=== PATIENT | female | born 1945 | race Asian ===

== ENCOUNTER 2023-10-17 07:49 | Outpatient (AMB) | payer OTHER, SELFPAY ==
--- NOTE | 2023-10-17 07:52 | A.OFFVIS_ITS ---
Intake Vital Signs 10/17/23 08:05 Height 5 ft Weight 133 lb 2 oz BMI 26.0 BP 118/64 Blood Pressure Location Rt brachial Position Sitting Respiration 16 Pulse 65 Pulse Source Pulse Oximeter Pulse Oximetry (%) 97 Oxygen Delivery Method Room Air Intake Visit Reasons: ENP-Memory/Dementia - Confirmed Intake Note: Pt presents for new pt evaluation for memory loss and dementia. Senior Project Accountant Required: Yes Senior Project Accountant Name: Bj Valadez Allergies No Known Allergies Allergy (Verified 10/17/23 07:59) Medication List - Last Reconciled 10/17/23 by Roselyn Christy MD allopurinol 100 mg PO DAILY aspirin 81 mg PO DAILY diclofenac sodium 1% 2 grams topical QID levothyroxine 50 mcg PO DAILY metformin 500 mg PO BID metoprolol succinate ER 50 mg PO BID nifedipine ER 30 mg PO DAILY simvastatin 20 mg PO DAILY zoledronic acid 4 mg IV Q4W HPI HPI Comments History of Present Illness Details 78y/o female comes for evaluation of cog nitive issues.she has been living with her daughter for 4 years a now and her daughter noticed that the patient was having frequent short term . It is mostly short term recall, she has trouble with names of friends.she does her own breakfast but no cooking Her daughter takes care of her meds. 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 she has some personality change s- gets irritable especially with her . In 2017 she was c/o headaches but has self resolved. No head injury. No anxiety or depression diagnosed. she has poor sleep hygiene - still in [facility] time. she snores and daytime fatigue. According to her daughter when she moved here in 2018 her HTN was poorly control led. The MRI form 2021 shows extensive white matter disease. [facility] Medical History (Updated 10/18/23 @ 12:50 by Roselyn Christy MD) Hypersomnia Snoring Depression Mixed dementia Gout Hyperlipidemia Multiple myeloma Diabetes Hypothyroidism HTN (hypertension) Arthritis of knee Osteoporosis Hypersomnia Snoring Vaginal prolapse Surgical History H/O thyroidectomy H/O total hysterectomy Family History Father No problems noted. Mother No problems noted. Brother Diabetes Sister HTN (hypertension) Social History Household Members: Family Alcohol intake: never Patient Tobacco Use Status: Never used Tobacco Physical Exam Vital Signs: Last Vital Signs Pulse 65 10/17/23 08:05 Resp 16 10/17/23 08:05 BP 118/64 10/17/23 08:05 Pulse Ox 97 10/17/23 08:05 Oxygen Delivery Method Room Air 10/17/23 08:05 BMI result Body Mass Index 26.0 Const General: cooperative, healthy appearing and comfortable Nutritional Appearance: average body habitus Orientation/consciousness: patient oriented x3 Eyes Pupils: Equal, round and reactive pupils present Neck Neck: Yes no meningeal signs Neuro Other: mallampatti grade 4 General: patient oriented x3, tone normal, moves all extremities, no meningeal signs and no focal motor deficits Cranial nerves: Yes Facial sensation intact/muscles of mastication intact, Yes Equal, round and reactive pupils present, Yes Bilaterally intact EOM present, Yes Nystagmus not present and Yes Normal facial strength present Gait exam (Neuro): Antalgic gait present Motor exam (neuro): 5/5 motor strength present throughout and Normal motor muscle tone present throughout Deep tendon reflexes (DTR's): Right triceps reflex intensity grade: 1+, Left triceps reflex intensity grade: 1+, Rt Biceps (C5, C6): 1+, Left biceps reflex intensity grade: 1+, Right brachioradialis reflex intensity grade: 1+, Left brachioradialis reflex intensity grade: 1+, Right patellar reflex intensity grade: 1+ and Left patellar reflex intensity grade: 1+ Coordination: [id number] test normal Psych Affect: Anxious affect present Orientation What is the (year) (season) (date) (day) (month)?: season and day Where are we (state) (county) (town or city) (hospital) (floor)?: state, hospital/clinic and floor Registration Name of 3 unrelated objects clearly and slowly, then ask patient to repeat all 3 of them. (1st repeat determines score. Make sure they can repeat all three): object 1, object 2 and object 3 Attention & Calculation (CHOOSE ONE) Spell WORLD backwards (DLROW): 5 letters Language Show patient a wristwatch & ask what it is. Repeat for pencil.: watch and pencil Ask the patient to 'take a piece of paper with their right hand' 'fold paper in half' 'place paper on floor': take paper in right hand, fold paper in half and place paper on floor Print the sentence 'CLOSE YOUR EYES' on a piece. If patient actually closes eyes then score.: followed written direction Give patient a blank piece of paper & ask to write a sentence. Score if it contains a noun & verb.: sentence contains subject and verb Ask patient to copy figure of intersecting pentagons exactly. Score if all 10 angles & 2 intersects are included.: all 10 angles present & 2 are intersected Score Score: 21 Assessment & Plan Assessment & Plan (1) Mixed dementia: Comment: predominantly vascular Code(s): G30.9 - Alzheimer's disease, unspecified; F01.50 - Vascular dementia, unspecified severity, without behavioral disturbance, psychotic disturbance, mood disturbance, and anxiety; F02.80 - Dementia in other diseases classified elsewhere, unspecified severity, without behavioral disturbance, psychotic disturbance, mood disturbance, and anxiety (2) Depression: Code(s): F32.A - Depression, unspecified (3) Snoring: Code(s): R06.83 - Snoring (4) Hypersomnia: Code(s): G47.10 - Hypersomnia, unspecified Plan Patient did not tolerate donepezil I will trial her on memantine XR 7 mg qd and titrate upto 28 mg qd Suggested cognitive therapy Home sleep test to r/o sleep apnea Citalopram 10mg qd for mood Increase cognitive and social activity Orders: Orders RT home sleep study 10/17/23 G47.10 - Hypersomnia, unspecified, R06.83 - Snoring Medications: New citalopram 10 mg PO DAILY 30 tabs 6RF memantine 7 mg PO DAILY 30 ea 0RF Coding Level of Care Code New Pt Level 4 (59830) Diagnoses Mixed dementia G30.9; F01.50; F02.80 Depression F32.A Snoring R06.83 Hypersomnia G47.10
[2023-10-17 08:05] VITALS: BP 118/64; PULSE 65; RESP 16; O2SAT 97; BMI 26.0
== END 2023-10-17 09:13 | disposition home or self-care (01) ==
PROVIDERS: PCP Internal Medicine; Visit Provider Psychiatry & Neurology Neurology
DX: G30.9 Alzheimer's disease, unspecified (principal); F01.50 Vascular dementia, unspecified severity, without behavioral disturbance, psychotic disturbance, mood disturbance, and anxiety; F02.80 Dementia in other diseases classified elsewhere, unspecified severity, without behavioral disturbance, psychotic disturbance, mood disturbance, and anxiety; F32.A Depression, unspecified; R06.83 Snoring; G47.10 Hypersomnia, unspecified
CPT/HCPCS: 99204

== ENCOUNTER → 2023-10-17 07:49 | Outpatient (BNVA) | payer OTHER, SELFPAY | PROVIDERS: PCP Internal Medicine; Visit Provider Psychiatry & Neurology Neurology ==

== ENCOUNTER → 2023-11-30 12:41 | Outpatient (REF) | payer MEDICAID, SELFPAY | LOC: HO.SL 12:41 | PROVIDERS: PCP Internal Medicine; Visit Provider Psychiatry & Neurology Neurology | DX: G47.33 Obstructive sleep apnea (adult) (pediatric) (principal); R06.83 Snoring; G47.10 Hypersomnia, unspecified | CPT/HCPCS: 95806 ==

== ENCOUNTER → 2023-11-30 13:01 | Outpatient (BNV) | payer MEDICAID, SELFPAY | PROVIDERS: PCP Internal Medicine; Visit Provider Psychiatry & Neurology Neurology | DX: G47.33 Obstructive sleep apnea (adult) (pediatric) (principal) | CPT/HCPCS: 95806 ==

== ENCOUNTER 2024-01-24 08:26 | Outpatient (AMB) | payer OTHER, SELFPAY ==
--- NOTE | 2024-01-24 08:29 | A.OFFVIS_ITS ---
Vital Signs 01/24/24 08:30 Height 5 ft Weight 133 lb BMI 26.0 BP 114/58 L Blood Pressure Location Lt brachial Position Sitting Respiration 16 Pulse 80 Pulse Source Pulse Oximeter Pulse Oximetry (%) 99 Oxygen Delivery Method Room Air Intake Visit Reasons: 3M follow up-CONF Intake Note: Pt presents to the office for 3 month follow up for Alzheimer's. Miller Supervisor Required: No Allergies No Known Allergies Allergy (Verified 01/24/24 08:30) Medication List - Last Reconciled 01/24/24 by Roselyn Christy MD allopurinol 100 mg PO DAILY aspirin 81 mg PO DAILY diclofenac sodium 1% 2 grams topical QID levothyroxine 50 mcg PO DAILY memantine 28 mg PO DAILY 90 days metformin 500 mg PO BID metoprolol succinate ER 50 mg PO BID nifedipine ER 30 mg PO DAILY simvastatin 20 mg PO DAILY zoledronic acid 4 mg IV Q4W HPI Comments Details: 78y/o female comes for follow up.of cognitive issues.she is on memantine XR 28 mg now an dis tolerating. she did not start citalopram Her daughter feels her affect has mildly imporved with memantine. Her HST was c/w mild sleep apnea. JACQUES was 14 and oxygen violetta was 78%. she has been living with her daughter for 4 years a now and her daughter noticed that the patient was having frequent short term . It is mostly short term recall, she has trouble with names of friends.she does her own breakfast but no cooking Her daughter takes care of her meds. 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 she has some personality change s- gets irritable especially with her . In 2017 she was c/o headaches but has self resolved. According to her daughter when she moved here in 2018 her HTN was poorly controlled. The MRI form 2021 shows extensive white matter disease. [facility] Medical History (Updated 01/24/24 @ 09:37 by Roselyn Christy MD) Obstructive sleep apnea Hypersomnia Snoring Depression Mixed dementia Gout Hyperlipidemia Multiple myeloma Diabetes Hypothyroidism HTN (hypertension) Arthritis of knee Osteoporosis Hypersomnia Snoring Vaginal prolapse Surgical History H/O thyroidectomy H/O total hysterectomy Family History Father No problems noted. Mother No problems noted. Brother Diabetes Sister HTN (hypertension) Social History Household Members: Family Alcohol intake: never Patient Tobacco Use Status: Never used Tobacco Physical Exam Vital Signs: Last Vital Signs Pulse 80 01/24/24 08:30 Resp 16 01/24/24 08:30 BP 114/58 L 01/24/24 08:30 Pulse Ox 99 01/24/24 08:30 Oxygen Delivery Method Room Air 01/24/24 08:30 BMI result Body Mass Index 26.0 Const General: cooperative, healthy appearing and comfortable Nutritional Appearance: average body habitus Orientation/consciousness: patient oriented x3 Eyes Pupils: Equal, round and reactive pupils present Neck Neck: Yes no meningeal signs Neuro Other: mallampatti grade 4 General: patient oriented x3, tone normal, moves all extremities, no meningeal signs and no focal motor deficits Cranial nerves: Yes Facial sensation intact/muscles of mastication intact, Yes Equal, round and reactive pupils present, Yes Bilaterally intact EOM present, Yes Nystagmus not present and Yes Normal facial strength present Gait exam (Neuro): Antalgic gait present Assessment & Plan Assessment & Plan (1) Mixed dementia: Comment: predominantly vascular Code(s): G30.9 - Alzheimer's disease, unspecified; F01.50 - Vascular dementia, unspecified severity, without behavioral disturbance, psychotic disturbance, mood disturbance, and anxiety; F02.80 - Dementia in other diseases classified elsewhere, unspecified severity, without behavioral disturbance, psychotic disturbance, mood disturbance, and anxiety Category: Medical (2) Depression: Code(s): F32.A - Depression, unspecified Category: Medical (3) Obstructive sleep apnea: Code(s): G47.33 - Obstructive sleep apnea (adult) (pediatric) Category: Medical Plan Patient did not tolerate donepezil Continue memantine XR 28 mg qd Suggested cognitive therapy Home sleep test results reviewed. will trial patient on AUtoPAP 5-20 cm of water PET -AMyloid for possibility of starting Leqembi . Increase cognitive and social activity Orders: Orders MR head/brain wo con Today F01.50 - Vascular dementia, unspecified severity, without behavioral disturbance, psychotic disturbance, mood disturbance, and anxiety, F02.80 - Dementia in other diseases classified elsewhere, unspecified severity, without behavioral disturbance, psychotic disturbance, mood disturbance, and anxiety, G30.9 - Alzheimer's disease, unspecified PET Brain beta amyloid Today F01.50 - Vascular dementia, unspecified severity, without behavioral disturbance, psychotic disturbance, mood disturbance, and anxiety, F02.80 - Dementia in other diseases classified elsewhere, unspecified severity, without behavioral disturbance, psychotic disturbance, mood disturbance, and anxiety, G30.9 - Alzheimer's disease, unspecified Medications: New [wheel chair] As directed 1 ea 0RF dementia
[2024-01-24 08:30] VITALS: BP 114/58; PULSE 80; RESP 16; O2SAT 99; BMI 26.0
== END 2024-01-24 09:05 | disposition home or self-care (01) ==
PROVIDERS: PCP Internal Medicine; Visit Provider Psychiatry & Neurology Neurology
DX: G30.9 Alzheimer's disease, unspecified (principal); F01.50 Vascular dementia, unspecified severity, without behavioral disturbance, psychotic disturbance, mood disturbance, and anxiety; F02.80 Dementia in other diseases classified elsewhere, unspecified severity, without behavioral disturbance, psychotic disturbance, mood disturbance, and anxiety; F32.A Depression, unspecified; G47.33 Obstructive sleep apnea (adult) (pediatric)
CPT/HCPCS: 99214

== ENCOUNTER → 2024-01-24 08:26 | Outpatient (BNVA) | payer OTHER, SELFPAY | PROVIDERS: PCP Internal Medicine; Visit Provider Psychiatry & Neurology Neurology ==

== ENCOUNTER 2024-02-13 07:19 | Outpatient (REF) | payer OTHER, SELFPAY ==
--- NOTE | ~2024-02-13 | MR_ITS ---
EXAMINATION: MR BRAIN WITHOUT CONTRAST CLINICAL INFORMATION: Alzheimer's disease COMPARISON: None available. TECHNIQUE: MRI of the brain was obtained using routine sequences without contrast. FINDINGS: No acute intracranial hemorrhage or infarct. Scattered and confluent periventricular and deep white matter T2/FLAIR hyperintensities, nonspecific however commonly seen with small vessel ischemic disease. Diffuse widening of the sulci with associated ex vacuo dilation of the ventricles compatible with global cerebral atrophy. No midline shift or hydrocephalus. No acute extra-axial fluid collections. The osseous structures are unremarkable. The pituitary gland, pineal gland and remaining midline structures are unremarkable. Sequela bilateral lens replacement. Otherwise, no orbital pathology. Mild mucosal thickening of the paranasal sinuses. The mastoid air cells are clear. MR/MR head/brain wo con IMPRESSION: -No acute intracranial abnormalities. -Global cerebral atrophy and chronic microangiopathy.
== END 2024-02-13 07:20 | disposition home or self-care (01) ==
LOC: HO.MRI 07:19
PROVIDERS: PCP Internal Medicine; Visit Provider Psychiatry & Neurology Neurology
DX: G30.9 Alzheimer's disease, unspecified (principal); F01.50 Vascular dementia, unspecified severity, without behavioral disturbance, psychotic disturbance, mood disturbance, and anxiety; F02.80 Dementia in other diseases classified elsewhere, unspecified severity, without behavioral disturbance, psychotic disturbance, mood disturbance, and anxiety
CPT/HCPCS: 70551

== ENCOUNTER 2024-02-21 12:10 | Outpatient (REF) | payer OTHER, SELFPAY ==
[2024-02-21 18:54] LABS: MANUAL DIFF FLAG NO
[2024-02-21 19:07] LABS: Basophils Percent Auto 0.6 % (0-2); Eosinophils Percent Auto 0.7 % (0-4); Hematocrit 31.7 % (37.0-47.0); Hemoglobin 10.7 g/dl (12.0-16.0); Imm Gran Abs Auto 0.01 X10*3/uL (0.00-0.03); Imm Gran Pct Auto 0.2 % (0.0-0.4); Lymphocytes Absolute Auto 2.4 X10*3/uL (1.2-4.9); Mean Corpuscular HGB Conc 33.8 g/dl (31.0-35.0); Mean Corpuscular Hemoglobin 35.1 pg (27.0-33.0); Mean Corpuscular Volume 103.9 fL (80.0-98.0); Mean Platelet Volume 8.9 fL (9.4-12.3); Monocytes Absolute Auto 0.5 X10*3/uL (0.1-1.2); Monocytes Percent Auto 10.1 % (2-11); Neutrophils Absolute Auto 2.3 x10*3/uL (2.0-8.3); Neutrophils Percent Auto 43.4 % (45-73); Platelet Count 323 X10*3/uL (160-400); Red Blood Count 3.05 X10*6/uL (4.20-5.50); Red Cell Distribution Width 14.2 % (11.0-16.0); White Blood Count 5.4 X10*3/uL (4.8-10.8)
[2024-02-21 19:35] LABS: Alanine Aminotransferase 14 U/L (0-31); Alkaline Phosphatase 44 U/L (39-117); Anion Gap 15 (12-20); Aspartate Amino Transferase 28 U/L (5-31); Bilirubin Total 0.2 mg/dL (0.0-1.0); Blood Urea Nitrogen 11 mg/dL (9-16); Carbon Dioxide 23 mmol/L (22-29); Chloride 102 mmol/L (96-108); Estimated Glomerular Filt Rate > 60; Glucose Random 98 mg/dL (60-115); Potassium 4.3 mmol/L (3.3-5.1); Sodium 136 mmol/L (135-145); Total Protein 8.6 g/dL (6.5-8.0)
[2024-02-21 19:36] LABS: Erythrocyte Sedimentation Rate 36 MM/HR (0-20)
[2024-02-21 19:50] LABS: TSH reflex Free T4 2.79 uIU/mL (0.32-4.0)
[2024-02-21 19:58] LABS: Folate 19.3 ng/mL (> or = 4.0); Vitamin B12 606 pg/mL (200-900)
[2024-02-24 06:53] LABS: RPR Rapid Plasma Reagin NON-REACTIVE (NON-REACTIVE)
== END 2024-02-21 12:11 | disposition home or self-care (01) ==
LOC: HO.HKASLDS 12:10
PROVIDERS: Visit Provider Psychiatry & Neurology Neurology
DX: G30.9 Alzheimer's disease, unspecified (principal); F01.50 Vascular dementia, unspecified severity, without behavioral disturbance, psychotic disturbance, mood disturbance, and anxiety; F02.80 Dementia in other diseases classified elsewhere, unspecified severity, without behavioral disturbance, psychotic disturbance, mood disturbance, and anxiety
CPT/HCPCS: 36415; 80053; 82607; 82746; 84443; 85025; 85652; 86592

== ENCOUNTER 2024-11-05 12:42 | Outpatient (AMB) | payer MEDICAID, SELFPAY ==
--- NOTE | 2024-11-05 13:12 | MHC.OFFVIS ---
Vital Signs 11/05/24 13:16 Height 5 ft Weight 135 lb BMI 26.4 BP 120/60 Blood Pressure Location Rt brachial Position Sitting Pulse 65 Pulse Source Pulse Oximeter Pulse Oximetry (%) 98 Oxygen Delivery Method Room Air Intake Visit Reasons: f/u for MMSE needed for PET Scan at [facility] Note: Patient presents for a f/u appt for MMSE that is needed for PET scan. Assistant Secretary Required: No Accompanied by: Daughter Allergies No Known Allergies Allergy (Verified 11/05/24 13:16) HPI Comments Details: 79y/o female comes for follow up of cognitive issues. She is on memantine XR 28 mg now and is tolerating. She plans to start Citalopram today. Her daughter feels her affect has not improved since the memantine was started a year ago. Her HST was c/w mild sleep apnea. AHI was 14 and oxygen violetta was 78%, could not tolerate. She has been living with her daughter for 5 years a now and her daughter noticed that the patient was having frequent STM lapses. It is mostly short term recall, she has trouble with names of friends. She does her own breakfast but no cooking. Her daughter takes care of her meds and finances. 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 She has some personality changes gets emotional and irritable especially with her . In 2017 she was c/o headaches but has resolved. Her last fall was Oct 2023, no injuries. According to her daughter the HTN is well controlled. The MRI form 2021 shows extensive white matter disease. She is on Zometa for MM and followed by her Oncologist and PCP, Dr. Luther at [facility]. [facility] Medical History Obstructive sleep apnea Hypersomnia Snoring Depression Mixed dementia Gout Hyperlipidemia Multiple myeloma Diabetes Hypothyroidism HTN (hypertension) Arthritis of knee Osteoporosis Hypersomnia Snoring Vaginal prolapse Surgical History H/O thyroidectomy H/O total hysterectomy Family History Father No problems noted. Mother No problems noted. Brother Diabetes Sister HTN (hypertension) Social History Household Members: Family Alcohol intake: never Patient Tobacco Use Status: Never used Tobacco Review of Systems Const All systems reviewed & are unremarkable except as noted in HPI and below Physical Exam Vital Signs: Last Vital Signs Pulse 65 11/05/24 13:16 BP 120/60 11/05/24 13:16 Pulse Ox 98 11/05/24 13:16 Oxygen Delivery Method Room Air 11/05/24 13:16 BMI result Body Mass Index 26.4 Const General: cooperative, healthy appearing and comfortable Nutritional Appearance: average body habitus Orientation/consciousness: patient oriented x3 Eyes Pupils: Equal, round and reactive pupils present Neck Neck: Yes no meningeal signs Neuro Other: mallampatti grade 4 General: patient oriented x3, tone normal, moves all extremities, no meningeal signs and no focal motor deficits Cranial nerves: Yes Facial sensation intact/muscles of mastication intact, Yes Equal, round and reactive pupils present, Yes Bilaterally intact EOM present, Yes Nystagmus not present and Yes Normal facial strength present Gait exam (Neuro): Antalgic gait present Orientation Where are we (state) (county) (town or city) (hospital) (floor)?: state Attention & Calculation (CHOOSE ONE) Ask pt to begin with 100 & count backward by 7. Stop after 5 repeats. If pt cannot ask them to spell the word WORLD backward.: 93 Language Show patient a wristwatch & ask what it is. Repeat for pencil.: pencil Ask the patient to 'take a piece of paper with their right hand' 'fold paper in half' 'place paper on floor': take paper in right hand, fold paper in half and place paper on floor Print the sentence 'CLOSE YOUR EYES' on a piece. If patient actually closes eyes then score.: followed written direction Score Score: 7 Results Reviewed Results Reviewed: MRI MR/MR head/brain wo con IMPRESSION: -No acute intracranial abnormalities. -Global cerebral atrophy and chronic microangiopathy. Assessment & Plan Assessment & Plan (1) Mixed dementia: Comment: predominantly vascular Code(s): G30.9 - Alzheimer's disease, unspecified; F01.50 - Vascular dementia, unspecified severity, without behavioral disturbance, psychotic disturbance, mood disturbance, and anxiety; F02.80 - Dementia in other diseases classified elsewhere, unspecified severity, without behavioral disturbance, psychotic disturbance, mood disturbance, and anxiety Category: Medical (2) Depression: Code(s): F32.A - Depression, unspecified Category: Medical Qualifiers: Depression Type: other depression Qualified Code(s): F32.89 - Other specified depressive episodes (3) Obstructive sleep apnea: Code(s): G47.33 - Obstructive sleep apnea (adult) (pediatric) Category: Medical Plan Continue memantine XR 28 mg qd Suggested cognitive therapy MMSE is 7 today, Patient not a good candidate for PET scan and Leqembi. Increase cognitive and social activity Labs and f/u in December 2024 Orders: Orders Vitamin B12 Today F01.50 - Vascular dementia, unspecified severity, without behavioral disturbance, psychotic disturbance, mood disturbance, and anxiety, F02.80 - Dementia in other diseases classified elsewhere, unspecified severity, without behavioral disturbance, psychotic disturbance, mood disturbance, and anxiety, G30.9 - Alzheimer's disease, unspecified TSH reflex Free T4 Today F01.50 - Vascular dementia, unspecified severity, without behavioral disturbance, psychotic disturbance, mood disturbance, and anxiety, F02.80 - Dementia in other diseases classified elsewhere, unspecified severity, without behavioral disturbance, psychotic disturbance, mood disturbance, and anxiety, G30.9 - Alzheimer's disease, unspecified Coding Level of Care Code Est Pt Level 4 (28548) Diagnoses Mixed dementia G30.9; F01.50; F02.80 Other depression F32.89 Depression Type: other depression Obstructive sleep apnea G47.33 Time Spent (min) 30 Comment Worsening Alzheimers Dementia
[2024-11-05 13:16] VITALS: BP 120/60; PULSE 65; O2SAT 98; BMI 26.4
--- OUTSIDE RECORDS SUMMARY | 2024-11-05 13:59 | XMS_ITS ---
Author Organization [facility] Address [address] [place] [address] Phone Care Team Providers Care [place] Boatman Name Role Phone Tadeo Luther MD Primary Care Provider [phone] Active Problems Problem Noted Date Diagnosed Date Compression fracture of body of thoracic vertebr a 04/23/2020 Type 2 diabetes mellitus wit hout complication, without long-term current use of insulin 04/23/2020 Weight loss 04/23/2020 Anemia complicating neoplastic disease 0 Multiple myeloma in remission 01/23/2020 Current Oncology Plans ZOLEDRONIC ACID ( ZOMETA ) EVERY 6 MONTHS* Plan Start Date:11/05/2024 Plan Provider:Ryan Bull MD Linked Problems Multiple myeloma in [facility] ([facility]) Treatment Medications No medications scheduled. Past Plans No past plan information found. Radiation Treatments * No radiation treatments are documented for this patient in [facility]. Treatments may have been administered in another system.
--- OUTSIDE RECORDS SUMMARY | 2024-11-05 13:59 | XMS_ITS ---
Author Organization [facility] Address [address] [place] [address] Care Team Providers Care Conference Manager Name Role Phone Tadeo Luther MD Primary Care Provider [phone] Active Problems Problem Noted Date Diagnosed Date Weight loss 04/23/2020 Compression fracture of body of thoracic vertebr a 04/23/2020 Type 2 diabetes mellitus wit hout complication, without long-term current use of insulin 04/23/2020 Multiple myeloma in remission 01/23/2020 Anemia complicating neoplastic disease 0 Current Oncology Plans [facility] ZOLEDRONIC ACID (ZOMETA) Q 6 MONTHS* Plan Start Date:11/22/2023 Plan Provider:Ryan Roblero MD Linked Problems Multiple myeloma in remissio n (HCC)Compression fracture of body of thoracic vertebra (HCC) Treatment Medications Saline Flush 0.9 %sodium chl oride (NS) 0.9 %zoledronic acid (ZOMETA) Past Plans ONCOLOGY INFUSION THERAPY Plan Name Start Date Discontinue Date Treatment Medications Discontinue Reason Plan Provider [facility] ZOLEDRONIC ACID (ZOMETA) Q 6 MONTHS 11/15/2022 11/11/2023 Saline Flush 0.9 %sodium chloride (NS) 0.9 %zoledronic acid (ZOMETA) Change in Level of Care Ryan Roblero MD Radiation Treatments * No radiation treatments are documented for this patient in [facility]. Treatments may have been administered in another system.
--- OUTSIDE RECORDS SUMMARY | 2024-11-05 13:59 | XMS_ITS | Clinical Summary ---
Author Organization [employer] [facility] Address [address] [place] [address] Care Team Providers Care Cleaning Associate Name Role Phone Tadeo Luther MD Primary Care Provider [phone] Allergies No known active allergies Medications Medication Sig Dispensed Refills Start Date End Date Status allopurinol (ZYLOPRIM) 100 MG tablet Take 1 tablet (100 mg total) by mouth daily. 0 01/06/2020 Active ASPIRIN LOW DOSE 81 MG EC tablet Take 1 tablet (81 mg total) by mouth daily. 0 01/06/2020 Active NIFEdipine (PROCARDIA) 20 MG capsule Take 1 capsule (20 mg total) by mouth 3 (three) times a day. 0 Active Diclofenac Sodium 1 % GEL topical Place onto the skin. 0 Active metoprolol tartrate (LOPRESSOR) 50 MG tablet Take 1 tablet (50 mg total) by mouth 2 (two) times a day. 0 Active levothyroxine (SYNTHROID, LEVOXYL) tablet 50 mcg Take 1 tablet (50 mcg total) by mouth every morning on an empty stomach. 0 Active simvastatin (ZOCOR) tablet 20 mg Take 1 tablet (20 mg total) by mouth every night at bedtime. 0 Active bisoprolol-hydroCHLORO thiazide (ZIAC) 2.5-6.25 MG per tablet Take 1 tablet by mouth daily. 0 Active metFORMIN (GLUCOPHAGE) tablet 500 mg Take 1 tablet (500 mg total) by mouth 2 (two) times a day with meals. 0 Active Memantine HCl ER 28 MG CP24 Take by mouth. 0 Active Active Problems Problem Noted Date Diagnosed Date Weight loss 04/23/2020 Compression fracture of body of thoracic vertebr a 04/23/2020 Type 2 diabetes mellitus wit hout complication, without long-term current use of insulin 04/23/2020 Multiple myeloma in remission 01/23/2020 Anemia complicating neoplastic disease 0 Social History Tobacco Use Types Packs/Day Years Used Date Smoking Tobacco: Never Assessed Sex and Gender Information Value Date Recorded Sex Assigned at Female 11/12/2023 9:40 AM EST Gender Identity Not on file Sexual Orientation Not on file Job Start Date Occupation Industry Not on file Not on file Not on file Last Filed Vital Signs Vital Sign Reading Time Taken Comments Blood Pressure 182/69 04/02/2024 12:15 PM EDT Pulse 67 04/02/2024 12:15 PM EDT Temperature 36.7 ??C (98 ??F) 04/02/2024 12: 15 PM EDT Respiratory Rate 16 04/02/2024 12:1 5 PM EDT Oxygen Saturation 98% 04/02/2024 12: 15 PM EDT Inhaled Oxygen Concentration - - Weight 60.7 kg (133 lb 12.8 oz) 024 12:15 PM EDT Height 149.9 cm (4' 11 ) 06/09/2021 1:31 PM EDT Body Mass Index 27.02 06/09/2021 1:31 PM EDT Plan of Treatment Health Maintenance Due Date Last Done Comments Hepatitis C Screening 1945 Depression Screening 1958 Preventative Health Evaluation 1964 Shingrix-Zoster Vaccine (1 of 2) 1965 Fall Risk Assessment 2011 Osteoporosis Screening (DEXA Scan) 2011 RSV Adult > 60+ Yrs or (1 - 1-dose 75+ series) 2021 COVID-19 Vaccine ( season) 2024 08/16/2023, 03/11/2022, 06/15/2021, Additional history exists Influenza Vaccine (#1) 2024 3, 11/11/2022, 09/04/2021, Additional history exists DTap / Tdap / Td (2 - Td or Tdap) 06/14/2028 06/14/2018 Pneumococcal Vaccine Completed 07/16/2019, 06/14/20 18 Hepatitis B Vaccines Aged Out No long er eligible based on patient's age to complete this topic RSV Ped < 20 months Aged Out No longe r eligible based on patient's age to complete this topic Care Teams Cleaning Associate Relationship Specialty Start Date End Date Tadeo Luther MD PCP - General Internal Medicine 06/09/21
--- OUTSIDE RECORDS SUMMARY | 2024-11-05 13:59 | XMS_ITS | Encounter Summary ---
Author Organization [facility] Address [address] [place] [address] Care Team Providers Care Acid Splicer Name Role Phone Tadeo Luther MD Primary Care Provider Encounter Details Date Type Department Care Team (Late Contact Info) Description 11/05/2024 Telephone [facility] Hematology Oncology [address] [place] [phone] Bowen Dunn MA Social History Tobacco Use Types Packs/Day Years Used Date Smoking Tobacco: Never Assessed Sex and Gender Information Value Date Recorded Sex Assigned at Female 10/08/2024 8:07 AM EST Gender Identity Female 10/08/2024 8:07 AM EST Sexual Orientation Not on file Job Start Date Occupation Industry Not on file Not on file Not on file documented as of this encounter Progress Notes * Bowen Dunn MA - 11/05/2024 12:17 PM EST Left vm for patient's daughter, informed her that regarding today's visit, Dr. Escobar would like labsperformed every 3 months and Zometa injection to occur every 6 months for clarification. Advised pt's daughter to call back with any further questions. documented in this encounter Plan of Treatment Upcoming Encounters Date Type Department Care Team (Late Contact Info) Description 11/20/2024 9:45 AM EST Office Visit Adult Medicine [address] [phone] Karl Mondragon PA [address] [place] [phone] 12/25/2024 9:00 AM EDT Office Visit Adult [facility] [address] [place] [phone] Tadeo Luther MD [address] [place] [phone] 05/06/2025 9:30 AM EDT Office Visit [facility] Hematology Oncology [address] [place] [phone] Pratima-Ryan Escobar MD [address] [place] [phone] 05/06/2025 10:00 AM EDT Appointment [facility] Infusion Center [address] [place] [phone] documented as of this encounter Visit Diagnoses Not on filedocumented in this encounter Care Teams Acid Splicer Relationship Specialty Start Date End Date Tadeo Luther MD [address] [place] [phone] PCP - General Internal Medicine 12/04/20 documented as of this encounter
--- OUTSIDE RECORDS SUMMARY | 2024-11-05 13:59 | XMS_ITS | Clinical Summary ---
Author Organization [facility] Address [address] [place] [address] Phone Care Team Providers Care Medical Director Name Role Phone Tadeo Luther MD Primary Care Provider [phone] Allergies No known active allergies Medications Medication Sig Dispensed Refills Start Date End Date Status allopurinoL (ZYLOPRIM) 100 mg tablet Take 100 mg by mouth daily. 01/06/2020 Active aspirin 81 mg EC tablet Take 81 mg by mouth daily. 01/06/2020 Active diclofenac (VOLTAREN) 1 % topical gel Place onto the skin. Active levothyroxine (SYNTHROID, LEVOTHROID) 50 mcg tablet Take 50 mcg by mouth every morning on an empty stomach. Active metFORMIN (GLUCOPHAGE) 500 mg tablet Take 500 mg by mouth 2 (two) times a day with meals. Active metoprolol tartrate (LOPRESSOR) 50 mg tablet Take 50 mg by mouth 2 (two) times a day. Active NIFEdipine (PROCARDIA) 20 mg capsule Take 20 mg by mouth 3 (three) times a day. Active simvastatin (ZOCOR) 20 mg tablet Take 20 mg by mouth every night at bedtime. Active memantine 7-14-21-28 mg cap,sprinkle,ER 24hr dose pack Take by mouth. - Oral Active bisoprolol-hydroCH LOROthiazide (ZIAC) 2.5-6.25 mg per tablet Take 1 tablet by mouth daily. 11/05/2024 Discontinued Active Problems Problem Noted Date Diagnosed Date Compression fracture of body of thoracic vertebr a 04/23/2020 Type 2 diabetes mellitus wit hout complication, without long-term current use of insulin 04/23/2020 Weight loss 04/23/2020 Anemia complicating neoplastic disease 0 Multiple myeloma in remission 01/23/2020 Encounters Date Type Department Care Team Description 11/05/2024 9:30 AM EST Hospital Encounter [facility] Infusion Center [address] [phone] Multiple myeloma in remission (CMS/HCC) (Primary Dx) 11/05/2024 9:00 AM EST Office Visit [facility] Hematology Oncology [address] [place] [phone] Lin Ornelas PA Multiple myeloma in remission (CMS/HCC) (Primary Dx); Anemia complicating neoplastic disease 11/05/2024 Telephone [facility] Hematology Oncology [address] [place] [phone] Bowen Dunn MA from Last 3 Months Immunizations Name Administration Dates Next Due Influenza trivalent, 0.5mL ( Fluzone High-dose) 65yo and older 10/23/2024 Social History Tobacco Use Types Packs/Day Years Used Date Smoking Tobacco: Never Assessed Sex and Gender Information Value Date Recorded Sex Assigned at Female 10/08/2024 8:07 AM EST Gender Identity Female 10/08/2024 8:07 AM EST Sexual Orientation Not on file Job Start Date Occupation Industry Not on file Not on file Not on file Obstetrics History Last Filed Vital Signs Vital Sign Reading Time Taken Comments Blood Pressure 130/53 11/05/2024 9:48 AM EST Pulse 68 11/05/2024 9:48 AM EST Temperature 36.6 ??C (97.9 ??F) 11/05/2024 9:48 AM ES T Respiratory Rate - - Oxygen Saturation 100% 11/05/2024 9:48 AM EST Inhaled Oxygen Concentration - - Weight 61.2 kg (135 lb) 11/05/2024 9:48 AM EST Height 149.9 cm (4' 11 ) 11/28/2023 8:18 AM EST Body Mass Index 27.27 11/28/2023 8:18 AM EST Plan of Treatment Upcoming Encounters Date Type Department Care Team (Late st Contact Info) Description 11/20/2024 9:45 AM EST Office Visit Adult [address] [phone] Karl Mondragon PA [address] [place] [address] 12/25/2024 9:00 AM EDT Office Visit Adult Medicine [facility] [address] [place] [phone] Tadeo Luther MD [address] [place] [phone] 05/06/2025 9:30 AM EDT Office Visit [facility] Hematology Oncology [address] [place] [phone] Ryan Bull MD [address] [place] [phone] 05/06/2025 10:00 AM EDT Appointment [facility] Infusion [facility] [address] [phone] Health Maintenance Due Date Last Done Comments Diabetes: Annual Foot Exam 1956 Diabetes: Annual Retina Eye Exam 1956 Zoster Vaccines (1 of 2) 1965 RSV Immunization Patients 60+ Years Old (1 - 1-dose 75+ series) 2021 Cholesterol Screening (Lipid Panel) 09/10/2022 Depression Screening 09/10/2022 Falls Risk Assessment 09/10/2022 Hepatitis C Screening 09/10/2022 Osteoporosis Screening (Bone Density Screening) 09/10/2022 Social Influencers of Health Screening 09/10/2022 Diabetes: Annual Urine Albumin-Creatinine Ratio (uACR) 09/16/2022 Diabetes: Blood Sugar Control Test (HGBA1C) 09/16/2022 Diabetes: Annual GFR (Glomerular Filtration Rate) 10/23/2025 10/23/2024 Hypertension/CHF/CAD Annual BMP Blood Test 10/23/2025 10/23/2024 DTaP,Tdap,and Td Vaccines (2 - Td or Tdap) 06/14/2028 06/14/2018 Pneumococcal Vaccine: 65+ Years Completed 07/16/2019, 06/14/2018 COVID-19 Vaccine Completed 10/23/2024, , 11/03/2022, Additional history exists Influenza Vaccine Completed 10/23/2024, , 11/11/2022, Additional history exists HIB Vaccines Aged Out No longer eligi ble based on patient's age to complete this topic HPV Vaccines Aged Out No longer eligi ble based on patient's age to complete this topic Hepatitis A Vaccines Aged Out No long er eligible based on patient's age to complete this topic Hepatitis B Vaccines Aged Out No long er eligible based on patient's age to complete this topic IPV Vaccines Aged Out No longer eligi ble based on patient's age to complete this topic MMR Vaccines Aged Out No longer eligi ble based on patient's age to complete this topic Meningococcal ACWY Vaccine Aged Out N o longer eligible based on patient's age to complete this topic RSV Immunization Patients Under 20 months Aged Out No longer eligible based on patient's age to complete this topic Varicella Vaccines Aged Out No longer eligible based on patient's age to complete this topic Procedures Procedure Name Priority Date/Time Associated Diagnosis Comments RI PROTEIN ELECTROPHORETIC FRACTIONATION & QUANTITATION SERUM Routine 10/23/2024 11:06 AM EST Multiple myeloma in remission (CMS/HCC) RI IMMUNOFIXATION ELECTROPHORESIS SERUM Routine 10/23/2024 11:06 AM EST Multiple myeloma in remission (CMS/HCC) IMMUNOGLOBULINS IGG, IGA, IGM Routine 10/23/2024 11:06 AM EST Multiple myeloma in remission (CMS/HCC) IMMUNOFIXATION ELECTROPHORESIS Routine 10/23/2024 11:06 AM EST Multiple myeloma in remission (CMS/HCC) IMMUNOFIXATION ELECTROPHORESIS Routine 10/23/2024 11:06 AM EST Multiple myeloma in remission (CMS/HCC) PROTEIN, TOTAL Routine 10/23/2024 11:06 AM EST Multiple myeloma in remission (CMS/HCC) CBC WITH AUTO DIFFERENTIAL Routine 10/23/2024 11:06 AM EST Multiple myeloma in remission (CMS/HCC) PHOSPHORUS Routine 10/23/2024 11:06 AM EST Multiple myeloma in remission (CMS/HCC) MAGNESIUM Routine 10/23/2024 11:06 AM EST Multiple myeloma in remission (CMS/HCC) CBC AND DIFFERENTIAL Routine 10/23/2024 11:06 AM EST Multiple myeloma in remission (CMS/HCC) COMPREHENSIVE METABOLIC PANEL Routine 10/23/2024 11:06 AM EST Multiple myeloma in remission (CMS/HCC) LACTATE DEHYDROGENASE Routine 10/23/2024 11:06 AM EST Multiple myeloma in remission (CMS/HCC) PROTEIN ELECTROPHORESIS, SERUM Routine 10/23/2024 11:06 AM EST Multiple myeloma in remission (CMS/HCC) KAPPA-LAMBDA QUANTITATIVE FREE LIGHT CHAINS Routine 10/23/2024 11:06 AM EST Multiple myeloma in remission (CMS/HCC) from Last 3 Months Results * Pathologist Review Immunofixation (10/23/2024 11:06 AM EST) Pathologist Interpretation 10/25/2024 12:07 PM EST [facility] Blood Venous blood specimen / Unknown Venipuncture / Unknown 10/23/2024 11:06 AM EST 10/23/2024 1:29 PM EST Subramony SubDarell MARTÍNEZ LAB BLOOD O RDERABLES [facility] ([facility]) [facility] [address] [place] [address], * PATHOLOGIST REVIEW PROTEIN ELECTROPHORESIS (10/23/2024 11:06 AM EST) Pathologist Interpretation 10/25/2024 12:07 PM EST [facility]) [facility] Blood Venous blood specimen / Unknown Venipuncture / Unknown 10/23/2024 11:06 AM EST 10/23/2024 1:29 PM EST Subramjordan Bull MD LAB BLOOD O RDERABLES Performing Organization Address City/[facility]/ZIP Co de Phone Number [facility] ([facility] [address] [place] [address], * (ABNORMAL) Treynor-lambda free light chains, quantitative (10/23/2024 11:06 AM EST) Treynor Free Light Chain 19.50(H) 0.33 - 1.94 mg/dL 10/26/2024 11:[address] [facility] Lambda Free Light Chain 1.24 0.57 - 2.63 mg/dL 10/26/2024 11:[address] [facility] Treynor/Lambda FLC Ratio 15.73(H) 0.26 - 1.65 10/26/2024 11:[address] [facility] Comment: Test performed at [facility], [address] , [place], [place] ??[address] ? [phone] Adelia Daley MD, PhD - [employer] Blood Venous blood specimen / Unknown Venipuncture / Unknown 10/23/2024 11:06 AM EST 10/23/2024 1:29 PM EST Subgeorgette Bull MD LAB BLOOD O RDERABLES [facility] [address] [place] [address] * (ABNORMAL) CBC auto differential (10/23/2024 11:06 AM EST) WBC 6.3 4.8 - 10.8 K/mcL LAB HEMETOLOGY METHOD 10/23/2024 1:35 PM [facility] RBC 3.10(L) 3.80 - 4.80 M/mcL LAB HEMETOLOGY METHOD 10/23/2024 1:35 PM [facility] Hemoglobin 10.3(L) 11.5 - 16.0 g/dL LAB HEMETOLOGY METHOD 10/23/2024 1:35 PM [facility] Hematocrit 33.1(L) 35.0 - 47.0 % LAB HEMETOLOGY METHOD 10/23/2024 1:35 PM [facility] MCV 107.8(H) 79.0 - 98.0 FL LAB HEMETOLOGY METHOD 10/23/2024 1:35 PM [facility] MCH 33.6(H) 27.0 - 32.0 pcg LAB HEMETOLOGY METHOD 10/23/2024 1:35 PM [facility] MCHC 31.1(L) 32.0 - 37.0 g/dL LAB HEMETOLOGY METHOD 10/23/2024 1:35 PM [facility] RDW 14.9 11.0 - 15.0 % LAB HEMETOLOGY METHOD 10/23/2024 1:35 PM [facility] Platelets 341 130 - 400 K/mcL LAB HEMETOLOGY METHOD 10/23/2024 1:35 PM [facility] MPV 8.7 7.0 - 11.0 FL LAB HEMETOLOGY METHOD 10/23/2024 1:35 PM [facility] NRBC 0.0 <1.0 % LAB HEMETOLOGY METHOD 10/23/2024 1:35 PM [facility] NRBC Absolute 0.00 <0.10 K/mcL LAB HEMETOLOGY METHOD 10/23/2024 1:35 PM [facility] Neutrophils Relative 58.0 % LAB HEMETOLOGY METHOD 10/23/2024 1:35 PM [facility] Lymphocytes Relative 30.5 % LAB HEMETOLOGY METHOD 10/23/2024 1:35 PM [facility] Monocytes Relative 9.8 % LAB HEMETOLOGY METHOD 10/23/2024 1:35 PM [facility] Eosinophils Relative 0.8 % LAB HEMETOLOGY METHOD 10/23/2024 1:35 PM [facility] Basophils Relative 0.6 % LAB HEMETOLOGY METHOD 10/23/2024 1:35 PM [facility] Immature Granulocytes Relative 0.3 % LAB HEMETOLOGY METHOD 10/23/2024 1:35 PM [facility] Neutrophils Absolute 3.66 1.50 - 7.00 K/mcL LAB HEMETOLOGY METHOD 10/23/2024 1:35 PM [facility] Lymphocytes Absolute 1.93 1.00 - 5.00 K/mcL LAB HEMETOLOGY METHOD 10/23/2024 1:35 PM [facility] Monocytes Absolute 0.62 0.20 - 1.00 K/mcL LAB HEMETOLOGY METHOD 10/23/2024 1:35 PM [facility] Eosinophils Absolute 0.05 0.00 - 0.50 K/mcL LAB HEMETOLOGY METHOD 10/23/2024 1:35 PM [facility] Basophils Absolute 0.04 0.00 - 0.20 K/mcL LAB HEMETOLOGY METHOD 10/23/2024 1:35 PM [facility] Immature Granulocytes Absolute 0.02 0.00 - 0.03 K/mcL LAB HEMETOLOGY METHOD 10/23/2024 1:35 PM [facility] Blood Venous blood specimen / Unknown Venipuncture / Unknown 10/23/2024 11:06 AM EST 10/23/2024 1:29 PM EST Subramony Subramonia-Luz MD LAB BLOOD O RDERABLES Performing Organization Address City/[facility]/ZIP Co de Phone Number [facility] [address] [place] [address], [place] [phone] * Immunofixation electrophoresis serum (10/23/2024 11:06 AM EST) Pathologist [facility] Immunofixation Result, Serum IgG Treynor monoclonal immunoglobulins detected. LAB CHEMISTRY METHOD 10/25/2024 12:07 PM EST [facility] Blood Venous blood specimen / Unknown Venipuncture / Unknown 10/23/2024 11:06 AM EST 10/23/2024 1:29 PM EST Subgeorgette Bull MD LAB BLOOD O RDERABLES Performing Organization Address [facility]/ZIP Co de Phone Number [facility] [address] [place] [address], [place] [phone] * (ABNORMAL) Immunoglobulins IgG, IgA, IgM (10/23/2024 11:06 AM EST) Total IgG 3,080(H) 549 - 1,584 mg/dL LAB CHEMISTRY METHOD 10/24/2024 3:34 PM EST [facility] IgA 63 61 - 348 mg/dL LAB CHEMISTRY METHOD 10/24/2024 3:34 PM EST [facility] IgM 12(L) 23 - 259 mg/dL LAB CHEMISTRY METHOD 10/24/2024 3:34 PM EST [facility] Blood Venous blood specimen / Unknown Venipuncture / Unknown 10/23/2024 11:06 AM EST 10/23/2024 1:29 PM EST Subramjordan Bull MD LAB BLOOD O RDERABLES Performing Organization Address City/[facility]/ZIP Co de Phone Number [facility] [address] [place] [address], [place] [phone] * (ABNORMAL) Protein electrophoresis, serum (10/23/2024 11:06 AM EST) Total Protein 8.8(H) 6.0 - 8.0 g/dL LAB CHEMISTRY METHOD 10/25/2024 12:07 PM [facility] Albumin, Serum 4.0 2.9 - 4.1 g/dL LAB CHEMISTRY METHOD 10/25/2024 12:07 PM [facility] Alpha 1 Globulin (g/dL) 0.2 0.1 - 0.5 g/dL LAB CHEMISTRY METHOD 10/25/2024 12:07 PM EST [facility] Alpha 2 Globulin (g/dL) 1.0 0.7 - 1.5 g/dL LAB CHEMISTRY METHOD 10/25/2024 12:07 PM [facility] Beta (g/dL) 0.9 0.7 - 1.5 g/dL LAB CHEMISTRY METHOD 10/25/2024 12:07 PM [facility] Gamma Globulin (g/dL) 2.7(H) 0.7 - 1.9 g/dL LAB CHEMISTRY METHOD 10/25/2024 12:07 PM [facility] PARAPROTEIN 1.6 g/dL LAB CHEMISTRY METHOD 10/25/2024 12:07 PM [facility] SPEP Interpretation Monoclonal gammopathy. Abnormal pattern with M-spike of gamma globulin mobility. Serum Immunofixation performed on this specimen demonstrated IgG Treynor monoclonal protein. Hypergammaglobin emia. ?? LAB CHEMISTRY METHOD 10/25/2024 12:07 PM [facility] Blood Venous blood specimen / Unknown Venipuncture / Unknown 10/23/2024 11:06 AM EST 10/23/2024 1:29 PM EST Subramjordan Bull MD LAB BLOOD O RDERABLES [facility] [address] [place] [address], [place] [phone] * (ABNORMAL) Protein, total (10/23/2024 11:06 AM EST) [facility] Total Protein 8.8(H) 6.0 - 8.0 g/dL LAB CHEMISTRY METHOD 10/23/2024 1:47 PM EST [facility] Blood Venous blood specimen / Unknown Venipuncture / Unknown 10/23/2024 11:06 AM EST 10/23/2024 1:29 PM EST Subgeorgette Bull MD LAB BLOOD O RDRENETTA Performing Organization Address City/[facility]/ZIP Co de Phone Number [facility] [address] [place] [address], [place] [phone] * Phosphorus (10/23/2024 11:06 AM EST) [facility] Phosphorus 3.2 2.5 - 4.5 mg/dL LAB CHEMISTRY METHOD 10/23/2024 1:45 PM EST [facility] Blood Venous blood specimen / Unknown Venipuncture / Unknown 10/23/2024 11:06 AM EST 10/23/2024 1:29 PM EST Subgeorgette Bull MD LAB BLOOD O YNES [facility] [address] [place] [address], [place] [phone] * Magnesium (10/23/2024 11:06 AM EST) Pathologist [facility] Magnesium 2.2 1.9 - 2.6 mg/dL LAB CHEMISTRY METHOD 10/23/2024 1:45 PM EST [facility] Blood Venous blood specimen / Unknown Venipuncture / Unknown 10/23/2024 11:06 AM EST 10/23/2024 1:29 PM EST Ryan Bull MD LAB BLOOD O RDERABLES Performing Organization Address City/[facility]/ZIP Co de Phone Number [facility] [address] [place] [address], [place] [phone] * Lactate dehydrogenase (10/23/2024 11:06 AM EST) LDH 187 120 - 246 unit/L LAB CHEMISTRY METHOD 10/23/2024 1:45 PM [facility] Blood Venous blood specimen / Unknown Venipuncture / Unknown 10/23/2024 11:06 AM EST 10/23/2024 1:29 PM EST Ryan Bull MD LAB BLOOD O RDTAQUERIABLES Performing Organization Address [facility]/ZIP Co de Phone Number [facility] [address] [place] [address], [place] [phone] * (ABNORMAL) Comprehensive metabolic panel (10/23/2024 11:06 AM EST) Sodium 136 133 - 145 mmol/L LAB CHEMISTRY METHOD 10/23/2024 1:45 PM [facility] Potassium 4.0 3.5 - 5.5 mmol/L LAB CHEMISTRY METHOD 10/23/2024 1:45 PM [facility] Chloride 105 96 - 110 mmol/L LAB CHEMISTRY METHOD 10/23/2024 1:45 PM [facility] CO2 27 21 - 32 mmol/L LAB CHEMISTRY METHOD 10/23/2024 1:45 PM [facility] Anion Gap 4 3 - 11 LAB CHEMISTRY METHOD 10/23/2024 1:45 PM [facility] Glucose 99 70 - 100 mg/dL LAB CHEMISTRY METHOD 10/23/2024 1:45 PM [facility] BUN 17 5 - 25 mg/dL LAB CHEMISTRY METHOD 10/23/2024 1:45 PM [facility] Creatinine 0.89 0.50 - 1.10 mg/dL LAB CHEMISTRY METHOD 10/23/2024 1:45 PM [facility] eGFR 66 >=60 mL/min/1. 73m2 LAB CHEMISTRY METHOD 10/23/2024 1:45 PM [facility] Comment:Calculation based on the??Chronic Kidney Disease Epidemiology Collaboration (CKD-EPI) equation refit??without adjustment for race. BUN/Creatinine Ratio 19.1 LAB CHEMISTRY METHOD 10/23/2024 1:45 PM [facility] Calcium 8.5 8.5 - 10.5 mg/dL LAB CHEMISTRY METHOD 10/23/2024 1:45 PM [facility] AST (SGOT) 29 10 - 42 unit/L LAB CHEMISTRY METHOD 10/23/2024 1:45 PM [facility] ALT (SGPT) 20 10 - 60 unit/L LAB CHEMISTRY METHOD 10/23/2024 1:45 PM [facility] Alkaline Phosphatase 45 42 - 121 unit/L LAB CHEMISTRY METHOD 10/23/2024 1:45 PM [facility] Total Protein 8.9(H) 6.0 - 8.0 g/dL LAB CHEMISTRY METHOD 10/23/2024 1:45 PM [facility] Albumin 3.7 3.2 - 5.0 g/dL LAB CHEMISTRY METHOD 10/23/2024 1:45 PM [facility] Total Bilirubin 0.4 0.0 - 1.4 mg/dL LAB CHEMISTRY METHOD 10/23/2024 1:45 PM [facility] Blood Venous blood specimen / Unknown Venipuncture / Unknown 10/23/2024 11:06 AM EST 10/23/2024 1:29 PM EST Subramony Ml MARTÍNEZ LAB BLOOD O RDERABLES [facility] [address] [place] [address], from Last 3 Months Care Teams Medical Director Relationship Specialty Start Date End Date Tadeo Luther MD [address] [place] [phone] PCP - General Internal Medicine 12/04/20
--- OUTSIDE RECORDS SUMMARY | 2024-11-05 14:00 | XMS_ITS | Encounter Summary ---
Author Organization [facility] Address [address] [place] [address] Care Team Providers Care Lawn Caretaker Name Role Phone Tadeo Luther MD Primary Care Provider [phone] Reason for Visit * Episode Based Medications (Routine) - Authorized Specialty Diagnoses / Procedures Referred By Contac t Referred To Contact Diagnoses Multiple myeloma in remission (CMS/HCC) Ryan Bull MD [address] [place] [phone] [facility] [address] [place] [phone] Referral ID Status Reason Start Date Expiration Date V isits Requested Visits Authorized [id number] Authorized 08/01/2024 08/01/2025 1 2 Encounter Details Date Type Department Care Team (Latest Contact Info) Description 11/05/2024 9:30 AM EST Hospital Encounter [facility] [address] [place] [phone] Multiple myeloma in remission (CMS/HCC) (Primary Dx) Social History Tobacco Use Types Packs/Day Years Used Date Smoking Tobacco: Never Assessed Sex and Gender Information Value Date Recorded Sex Assigned at Female 10/08/2024 8:07 AM EST Gender Identity Female 10/08/2024 8:07 AM EST Sexual Orientation Not on file Job Start Date Occupation Industry Not on file Not on file Not on file documented as of this encounter Last Filed Vital Signs Vital Sign Reading Time Taken Comments Blood Pressure 130/53 11/05/2024 9:48 AM EST Pulse 68 11/05/2024 9:48 AM EST Temperature 36.6 ??C (97.9 ??F) 11/05/2024 9:48 AM ES T Respiratory Rate - - Oxygen Saturation 100% 11/05/2024 9:48 AM EST Inhaled Oxygen Concentration - - Weight 61.2 kg (135 lb) 11/05/2024 9:48 AM EST Height - - Body Mass Index 27.27 11/28/2023 8:18 AM EST documented in this encounter Progress Notes * Stephanie Agustin RN - 11/05/2024 9:30 AM EST 1015- Pt arrived today for zometa infusion. Comes in via WC accompanied by , dropped off bydaughter. Pt was seen in office downstairs by NIKOLAI Carreno in which they report went well. Pt feelingwell overall and denies acute complaints or changes. PIV obtained. Treatment released. Zometa infusing without issue. Pt resting comfortably at this time. Call meraz in reach. 1110- Pt rested comfortably throughout treatment. Zometa completed without incident. IVF flushed for about 20 minutes. Next appt made to coordinate with next MD REIS in 6 months. No further questions. PIV removed. Pt up to BR without issue. Left unit with , stable at D/C. documented in this encounter Plan of Treatment Upcoming Encounters Date Type Department Care Team (Late st Contact Info) Description 11/20/2024 9:45 AM EST Office Visit Adult Medicine [address] [phone] Karl Mondragon PA [address] [place] [address] 12/25/2024 9:00 AM EDT Office Visit Adult Medicine [address] [phone] Tadeo Luther MD [address] [place] [address] 05/06/2025 9:30 AM EDT Office Visit [facility] Hematology Oncology [address] [place] [phone] Pratima-Ryan Escobar MD [address] [place] [phone] 05/06/2025 10:00 AM EDT Appointment [facility] [address] [phone] documented as of this encounter Visit Diagnoses Diagnosis Multiple myeloma in remission (CMS/[facility])- Primary Multiple myeloma in remission documented in this encounter Administered Medications Inactive Administered Medications - up to 3 most recent administrations Medication Order MAR Action Action Date Dose Rate Site zoledronic acid (ZOMETA) IVPB pre-mix 4 mg 4 mg, intravenous, at 300 mL/hr, Administer over 20 Minutes, Once, On Tue11/05/24 at 1015, For 1 dose, HAZARDOUS Drug Precautions - Low Risk (Category A/NIOSH Group 3) Reproductive Risk Only: - Double pair of ASTM standard D6978 certified chemotherapy gloves - Eye protection (goggles or face shield) required only with a potential for facial contact (i.e. concern for spitting or vomiting of the dose during or after administration) - Staff at reproductive risk (actively trying to conceive, or may be become , and ): Chemotherapy gown New Bag 11/05/2024 10:14 AM EST 4 mg 300 mL/hr documented in this encounter Orders Medications Ordered That Vickey ht Not Have Been Administered Count Last Ordered Date First Ordered Date sodium chloride 0.9 % infusion 1 11/05/2024 Nursing Count Last Ordered Date First Orde red Date ONC NURSING COMMUNICATION 10 1 11/05/2024 ONC NURSING COMMUNICATION 5 1 11/05/2024 documented in this encounter Care Teams Lawn Caretaker Relationship Specialty Start Date End Date Tadeo Luther MD [address] [place] [phone] PCP - General Internal Medicine 12/04/20 documented as of this encounter
--- OUTSIDE RECORDS SUMMARY | 2024-11-05 14:00 | XMS_ITS | Encounter Summary ---
Author Organization [facility] Address [address] [place] [address] Care Team Providers Care Packager Hand Name Role Phone Tadeo Luther MD Primary Care Provider [phone] Reason for Visit * Reason Comments Follow-up Encounter Details Date Type Department Care Team (Late st Contact Info) Description 11/05/2024 9:00 AM EST Office Visit [facility] Hematology Oncology [address] [place] [phone] Lin Ornelas PA [address] [place] [address] Multiple myeloma in remission (CMS/HCC) (Primary Dx); Anemia complicating neoplastic disease Social History Tobacco Use Types Packs/Day Years [...] Time Taken Comments Blood Pressure 130/53 11/05/2024 9:06 AM EST Pulse 68 11/05/2024 9:06 AM EST Temperature 36.6 ??C (97.8 ??F) 11/05/2024 9:06 AM ES T Respiratory Rate - - Oxygen Saturation 100% 11/05/2024 9:06 AM EST Inhaled Oxygen Concentration - - Weight 61.2 kg (135 lb) 11/05/2024 9:06 AM EST Height - - Body Mass Index 27.27 11/28/2023 8:18 AM EST documented in this encounter Progress Notes * Lin Johnson, PA - 11/05/2024 9:00 AM EST Images from the original note were not included. Hematology/Oncology Consult Note Date of Consult: 11/05/2024 Patient's Primary Care Physician: Tadeo Luther MD Subjective History of Present Illness 74-year-old lady, who is evaluated for medical oncology follow up. Patient is accompanied by her daughter, who is a physician as well, and her . This is my first time meeting patient. She was last seen by Dr. Escobar in April of 2024. She is here for routine 6 months follow-up. Multiple myeloma surveillance labs obtained few days ago were essentially stable, without any acute or significant changes or decline. Zometa was last administered on 04/02/2024, she has an appt upstairs today for Zometa administration. She was in the [facility] and daughter reports that since she travelled several months ago, she hasn't complained of headache. No new bone pain. Patient and her family have no medical concerns. Denies fever, chills, headache, dizziness, unexplained weight loss, night sweats, SOB, GI sxs. (copied from prior note for clinical reference and updated as needed) Patient's history goes back many years. She was diagnosed with multiple myeloma in in the late 1990s, about 24 years previously. She was on surveillance for several years, however upon disease progression, was treated initially with dexamethasone, without effect. Thereafter she have achieved remission with chemotherapy including melphalan, vincristine, prednisone. Patient's presentation was with anemia. She did not have any hypercalcemia or renal issues. She has also had one episode of knee joint swelling and was found to have a localized disease which resolved with radiation therapy. In 2004, patient was evaluated in a hospital in [place], and was suspected to have disease relapse.However she did not receive further chemotherapy but was started on Zometa infusion every 6 months.She continued this until 2018. Patient was evaluated at [facility] in 2011, by Dr. Gandhi, and continued on surveillance and Zometa infusions at that time as well She had lab work performed in 2011, that showed increased IgG level, and IgG monoclonal band, but was not quantified Patient has mild anemia, but remains asymptomatic. She denies any areas of bone or back pain. She denies any nausea. She has not had any fevers PLAN -- 74-year-old lady with a long history of multiple myeloma, since 1995, who has done quite well with initial MVP chemotherapy, followed by zoledronic acid maintenance. Zometa was discontinued in 2018, after nearly 13 years of therapy. However comparing her lab work between 2011 and 2019, appears to have an increase in her IgG level, as well as a quantifiable IgG monoclonal spike. She has mild anemia. She does not have any hypercalcemia nor any renal dysfunction. She remains asymptomatic. Therefore at this time I have advised the patient to have lab work performed. I will have her do CBC, differential, CMP, LDH level, serum protein electrophoresis as well as free light chains. This will be monitored at 3-month intervals. If she has any new symptoms in the interim, or there is any evidence of progressive anemia, she may benefit from a discussion regarding further lines of treatment.I suspect that resumption of steroid therapy in itself or with medication such as Revlimid could provide her with improvement in her partial remission that she has had so far. Patient and family agree with this plan. Return to clinic for follow-up in 3 months 04/2020 - Patient reports that overall she feels well, however ongoing issues regarding weight loss are noted. Patient spent about a year living alone in [facility] and has [place]'s family for about 7 months. She spends a day time with her grandchildren. She does go out for some walks, limited by mild arthritis. She lost weight about 30+ pounds in an attempt to controlher diabetes which is now well controlled with HbA1c down to 5.6. She uses metformin for the same, and also Januvia. She continues on antihypertensive medications, bisoprolol, nifedipine. Patient's prior history is reviewed again. Latest treatments regarding myeloma was Zometa, that shecompleted in 2018. She had lab work in October that showed an M spike of 2.1, and it has remained stable at the latestlab work. She does have mild anemia. Concern for underlying vitamin D deficiency. Discussion today regarding continued surveillance versus restaging and initiation of treatment options. Patient has had skeletal survey previously, and showed uncertain lesions in the left-sided ribs. She has never had a PET CT scan for staging. 11/2020 -- Patient and daughter both report that she has been doing fairly well over the last 4 months. Headache has significantly improved. She had an x-ray of the skull in July, at the [facility], there is reviewed, no acute findings, no lytic lesions. She had further lab work and is here for follow-up. In last week of May, patient was restarted on denosumab. Patient denies any new areas of pain. Weight has been fluctuating in the range of 2 pounds. She denies any chills or fevers. Lab work is reviewed, showed decrease in the M spike down to 1.6. Mild anemia persists. Calcium, renal function is in the normal range, and kappa to lambda ratio is at 19. 9 / 2020 - She reports that she is feeling well. She remains active, although the limited fashion. She has gained about 10 pounds in weight. Appetite is improved. Patient denies any significant areas of pain. She does have occasional mid back pain related to a prior compression fracture, that was present for a few days during the summer Patient had persistent headaches, and had a CT scan of her head in December Negative for any acute issues She continues on lab monitoring, latest labs are reviewed, showed mild stable anemia hemoglobin of 10.9 Elevated protein, IgG M spike is slightly higher at 1.9 Cancer Staging No matching staging information was found for the patient. Oncology History No history exists. Past Medical History No past medical history on file. Multiple myeloma in remission (HCC) 01/23/2020 Anemia complicating neoplastic disease 01/23/2020 Weight loss 04/23/2020 Compression fracture of body of thoracic vertebra ([facility]) 04/23/2020 Type 2 diabetes mellitus without complication, without long-term current use of insulin ([facility]) 04/23/2020 Past Surgical History No past surgical history on file. Family History No family history on file. Personal and Social History Social History Tobacco Use Smoking Status Not on file Smokeless Tobacco Not on file Social History Substance and Sexual Activity Alcohol Use Not on file Social History Substance and Sexual Activity Drug Use Not on file REVIEW OF SYSTEMS: Constitutional: No fevers, weight loss, nightsweats, chills, fatigue HEENT: No oral lesions Respiratory: No cough, shortness of breath Cardiac: No chest pain, palpitations GI: No nausea, vomiting, diarrhea, constipation, abdominal pain : No urinary complaints Skin: No rashes or ease of bruising Neuro: No headaches, dizziness, focal weakness, paresthesias Musculoskeletal: No bone pain, no joint pain. Hem/Lymph : No palpable lymph nodes, no bleeding or easy bruising Objective Medications Current Outpatient Medications: allopurinoL (ZYLOPRIM) 100 mg tablet, Take 100 mg by mouth daily., Disp: , Rfl: aspirin 81 mg EC tablet, Take 81 mg by mouth daily., Disp: , Rfl: diclofenac (VOLTAREN) 1 % topical gel, Place onto the skin., Disp: , Rfl: levothyroxine (SYNTHROID, LEVOTHROID) 50 mcg tablet, Take 50 mcg by mouth every morning on an emptystomach., Disp: , Rfl: memantine 7-14-21-28 mg cap,sprinkle,ER 24hr dose pack, Take by mouth. - Oral, Disp: , Rfl: metFORMIN (GLUCOPHAGE) 500 mg tablet, Take 500 mg by mouth 2 (two) times a day with meals., Disp: ,Rfl: metoprolol tartrate (LOPRESSOR) 50 mg tablet, Take 50 mg by mouth 2 (two) times a day., Disp: , Rfl: NIFEdipine (PROCARDIA) 20 mg capsule, Take 20 mg by mouth 3 (three) times a day., Disp: , Rfl: simvastatin (ZOCOR) 20 mg tablet, Take 20 mg by mouth every night at bedtime., Disp: , Rfl: Allergies No Known Allergies Physical Exam Vitals: 11/05/24 0906 BP: 130/53 BP Location: Left arm Patient Position: Sitting BP Cuff Size: Adult Pulse: 68 Temp: 36.6 ??C (97.8 ??F) TempSrc: Temporal SpO2: 100% Weight: 61.2 kg (135 lb) Body mass index is 27.27 kg/m??. General: well appearing, in no acute distress Eyes: conjunctiva pink and sclera are Normal without icterus Oral cavity: No erythema or exudates Neck Neck supple, no adenopathy, Lymph: No palpable cervical, supraclavicular or axillary adenopathy. Resp: CTA; normal inspiratory effort, no wheezes, rhonchi or rales Cardio: RRR, no murmurs rubs or gallops Abdomen: soft non tender, non distended, normoactive bowel sounds, MSK: FROM of UE and Les bilaterally; no edema Skin: warm, dry, no rashes Neuro: alert and oriented, normal speech, slow gait, on wheelchair Imaging Labs Assessment & Plan 79 year-old lady with multiple myeloma #1 multiple myeloma, initially diagnosed in 1995, and treatment including MVP chemotherapy Latest lab work shows stable disease with some improvement, decrease in M spike Would continue to monitor CBC with differential, serum protein electrophoresis, IgG levels, serum free light chains at 3-month interval (standing orders already in place) Latest M spike slightly increased 1.6 (previously 1.9), but has been as high as 2.2 before #2 skeletal disease, may be better controlled with denosumab, 120 mg, will plan for 6 monthly treatment, Started in May 2020, continue at 6-month interval , last dose was in Jun 2021 Due to denial from insurance, switched to Zometa latest dose November 2023 Plan for Zometa 3.5 mg IV every 6 months--is contributing to disease maintenance Resume treatment today, and thereafter at 6-month interval #3 at this time there is no significant hypercalcemia or renal dysfunction, continue to monitor forthe same Will continue to monitor labs at 6-month intervals and sooner if new symptoms arise May need to consider second line therapy if she has any systemic effects from myeloma #4 history of plasmacytoma, 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 If patient has any progression biochemically, or symptomatically, recommend restaging at that time X-ray of skull did not reveal any lytic lesion She also had an MRI, to work-up headaches, was negative, except for chronic small vessel ischemia Headaches resolved #5 weight loss, has stabilized Zometa infusion, today and then every 6 months-May, with labs prior Clinic follow-up in 6 months after labs, patient and her and daughter agree with this plan Pain Control--no issues Health Care Proxy--daughter Please note, this note may have been created in part by using [employer] dictation software, and therefore, it may contain typographical and/or grammatical errors inherent in a voice recognition software program Sign: Lin Ev Johnson, PA-C Hematology/Oncology [facility] [phone] documented in this encounter Plan of Treatment Upcoming Encounters Date Type Department Care Team (Late st Contact Info) Description 11/20/2024 9:45 AM EST Office Visit Adult Medicine [address] [phone] Karl Mondragon PA [address] [place] [address] 12/25/2024 9:00 AM EDT Office Visit Adult Medicine [address] [phone] Tadeo Luther MD [address] [place] [address] 05/06/2025 9:30 AM EDT Office Visit [facility] Hematology Oncology [address] [place] [phone] Ryan Bull MD [address] [place] [phone] 05/06/2025 10:00 AM EDT Appointment [facility] [address] [place] [phone] documented as of this encounter Visit Diagnoses Diagnosis Multiple myeloma in remission (CMS/HCC)- Primary Multiple myeloma in remission Anemia complicating neoplastic disease documented in this encounter Discontinued Medications Medication Sig Discontinue Reason Start Date End Da te bisoprolol-hydroCHLOROth iazide (ZIAC) 2.5-6.25 mg per tablet Take 1 tablet by mouth daily. 11/05/2024 documented as of this encounter Care Teams Packager Hand Relationship Specialty Start Date End Date Tadeo Luther MD [address] [place] [address] PCP - General Internal Medicine 12/04/20 documented as of this encounter
== END 2024-11-05 13:58 | disposition home or self-care (01) ==
PROVIDERS: PCP Internal Medicine; Visit Provider Physician Assistant Medical
DX: G30.9 Alzheimer's disease, unspecified (principal); F01.50 Vascular dementia, unspecified severity, without behavioral disturbance, psychotic disturbance, mood disturbance, and anxiety; F02.80 Dementia in other diseases classified elsewhere, unspecified severity, without behavioral disturbance, psychotic disturbance, mood disturbance, and anxiety; F32.89 Other specified depressive episodes; G47.33 Obstructive sleep apnea (adult) (pediatric)
CPT/HCPCS: 99214

== ENCOUNTER → 2024-11-05 12:42 | Outpatient (BNVA) | payer MEDICAID, SELFPAY | PROVIDERS: PCP Internal Medicine; Visit Provider Physician Assistant Medical | DX: G30.9 Alzheimer's disease, unspecified (principal); G47.33 Obstructive sleep apnea (adult) (pediatric); F01.50 Vascular dementia, unspecified severity, without behavioral disturbance, psychotic disturbance, mood disturbance, and anxiety; F02.80 Dementia in other diseases classified elsewhere, unspecified severity, without behavioral disturbance, psychotic disturbance, mood disturbance, and anxiety; F32.89 Other specified depressive episodes | CPT/HCPCS: 99212 ==

== ENCOUNTER 2025-04-02 09:46 | Outpatient (REF) | payer OTHER, SELFPAY ==
[2025-04-02 15:48] LABS: Vitamin B12 470 pg/mL (200-900)
== END 2025-04-02 09:47 | disposition home or self-care (01) ==
LOC: HO.HKASLDS 09:46
PROVIDERS: Physician Assistant Medical; PCP Internal Medicine; Visit Provider Psychiatry & Neurology Neurology
DX: F01.50 Vascular dementia, unspecified severity, without behavioral disturbance, psychotic disturbance, mood disturbance, and anxiety (principal); G30.9 Alzheimer's disease, unspecified; F02.80 Dementia in other diseases classified elsewhere, unspecified severity, without behavioral disturbance, psychotic disturbance, mood disturbance, and anxiety
CPT/HCPCS: 36415; 82542; 82607; 84443; 99212

== ENCOUNTER 2025-04-02 09:46 | Outpatient (AMB) | payer OTHER, SELFPAY ==
[2025-04-02 09:49] VITALS: BP 122/70; PULSE 66; O2SAT 98; BMI 24.8
--- NOTE | 2025-04-02 09:49 | A.OFFVIS_ITS ---
Vital Signs 04/02/25 09:49 Height 5 ft Weight 127 lb BMI 24.8 BP 122/70 Blood Pressure Location Rt brachial Position Sitting Pulse 66 Pulse Source Pulse Oximeter Pulse Oximetry (%) 98 Oxygen Delivery Method Room Air Intake Visit Reasons: 3M follow up Intake Note: Patient following up for MRI done on 02/13/24 PET scan was R/S from 11/29/24 to 12/17/24 at [place]. Allergies No Known Allergies Allergy (Verified 04/02/25 09:51) Medication List - Last Reconciled 04/02/25 by Roselyn Christy MD allopurinol 100 mg PO DAILY aspirin 81 mg PO DAILY diclofenac sodium 1% 2 grams topical QID levothyroxine 50 mcg PO DAILY memantine 28 mg PO DAILY 90 days metformin 500 mg PO BID metoprolol succinate ER 50 mg PO BID nifedipine ER 30 mg PO DAILY simvastatin 20 mg PO DAILY [wheel chair As directed] zoledronic acid 4 mg IV Q4W HPI Comments Details: 79y/o female comes for follow up of dementia . PET was positive for severe amyloid plaques. she is doing better comapred to he rlast visit( she had just come back from [facility]. She is on memantine XR 28 mg now and is tolerating. She did not start citalopram. According to her daughter she is more depressed at night.she does not want to use CPAP . Her HST was c/w mild sleep apnea. AHI was 14 and oxygen violetta was 78%, could not tolerate. She has been living with her daughter for 5 years a now and her daughter noticed that the patient was having frequent STM lapses. It is mostly short term recall, she has trouble with names of friends. She does her own breakfast but no cooking. Her daughter takes care of her meds and finances. 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 She has some personality changes gets emotional and irritable especially with her . In 2017 she was c/o headaches but has resolved. Her last fall was Oct 2023, no injuries. According to her daughter the HTN is well controlled. The MRI form 2021 shows extensive white matter disease. She is on Zometa for MM and followed by her Oncologist and PCP, Dr. Luther at [facility]. [facility] Medical History Obstructive sleep apnea Hypersomnia Snoring Depression Mixed dementia Gout Hyperlipidemia Multiple myeloma Diabetes Hypothyroidism HTN (hypertension) Arthritis of knee Osteoporosis Hypersomnia Snoring Vaginal prolapse Surgical History H/O thyroidectomy H/O total hysterectomy Family History Father No problems noted. Mother No problems noted. Brother Diabetes Sister HTN (hypertension) Social History Household Members: Family Alcohol intake: never Patient Tobacco Use Status: Never used Tobacco Physical Exam Vital Signs: Last Vital Signs Pulse 66 04/02/25 09:49 BP 122/70 04/02/25 09:49 Pulse Ox 98 04/02/25 09:49 Oxygen Delivery Method Room Air 04/02/25 09:49 BMI result Body Mass Index 24.8 Const General: cooperative, healthy appearing and comfortable Nutritional Appearance: average body habitus Orientation/consciousness: patient oriented x3 Eyes Pupils: Equal, round and reactive pupils present Neck Neck: Yes no meningeal signs Neuro Other: mallampatti grade 4 General: patient oriented x3, tone normal, moves all extremities, no meningeal signs and no focal motor deficits Cranial nerves: Yes Facial sensation intact/muscles of mastication intact, Yes Equal, round and reactive pupils present, Yes Bilaterally intact EOM present, Yes Nystagmus not present and Yes Normal facial strength present Gait exam (Neuro): Antalgic gait present Orientation What is the (year) (season) (date) (day) (month)?: season, day and month Where are we (state) (county) (town or city) (hospital) (floor)?: state, town or city, hospital/clinic and floor Registration Name of 3 unrelated objects clearly and slowly, then ask patient to repeat all 3 of them. (1st repeat determines score. Make sure they can repeat all three): object 1, object 2 and object 3 Attention & Calculation (CHOOSE ONE) Spell WORLD backwards (DLROW): 5 letters Language Show patient a wristwatch & ask what it is. Repeat for pencil.: watch and pencil Ask the patient to repeat the phrase 'No ifs, ands, or buts' after you.: correct Ask the patient to 'take a piece of paper with their right hand' 'fold paper in half' 'place paper on floor': take paper in right hand and fold paper in half Give patient a blank piece of paper & ask to write a sentence. Score if it contains a noun & verb.: sentence contains subject and verb Ask patient to copy figure of intersecting pentagons exactly. Score if all 10 angles & 2 intersects are included.: all 10 angles present & 2 are intersected Score Score: 22 Assessment & Plan Assessment & Plan (1) Alzheimer's dementia: Code(s): G30.9 - Alzheimer's disease, unspecified; F02.80 - Dementia in other diseases classified elsewhere, unspecified severity, without behavioral disturbance, psychotic disturbance, mood disturbance, and anxiety Category: Medical Qualifiers: Alzheimer's disease onset: late onset Dementia severity: moderate Dementia behavioral or psychological symptom: without behavioral, psychotic, or mood disturbance or anxiety Qualified Code(s): G30.1 - Alzheimer's disease with late onset; F02.B0 - Dementia in other diseases classified elsewhere, moderate, without behavioral disturbance, psychotic disturbance, mood disturbance, and anxiety (2) Depression: Code(s): F32.A - Depression, unspecified Category: Medical Qualifiers: Depression Type: other depression Qualified Code(s): F32.89 - Other specified depressive episodes Plan she will be a candidate for anti amyloid therapy - info on [place] given I will check her APO E 4 status , check Vit B 12 and repeat MRI brain before scheduling Orders: Orders Other Ref Test - [facility] Today F02.80 - Dementia in other diseases classified elsewhere, unspecified severity, without behavioral disturbance, psychotic disturbance, mood disturbance, and anxiety, G30.9 - Alzheimer's disease, unspecified MR head/brain wo con Today F02.80 - Dementia in other diseases classified elsewhere, unspecified severity, without behavioral disturbance, psychotic disturbance, mood disturbance, and anxiety, G30.9 - Alzheimer's disease, unspeci fied Medications: New citalopram 10 mg PO DAILY 30 tabs 6RF Coding Level of Care Code Est Pt Level 4 (96542) Complex EM visit Add On G2211 Diagnoses Moderate late onset Alzheimer's dementia without behavioral disturbance, psychotic disturbance, mood disturbance, or anxiety G30.1; F02.B0 Alzheimer's disease onset: late onset Dementia severity: moderate Dementia behavioral or psychological symptom: without behavioral, psychotic, or mood disturbance or anxiety Other depression F32.89 Depression Type: other depression
--- OUTSIDE RECORDS SUMMARY | 2025-04-02 10:37 | XMS_ITS ---
Author Organization [facility] Address [address] [place] [address] Care Team Providers Care Senior Mainframe Programmer Analyst Name Role Phone Tadeo Luther MD Primary Care Provider [phone] Active Problems Problem Noted Date Diagnosed Date Weight loss 04/23/2020 Compression fracture of body of thoracic vertebr a 04/23/2020 Type 2 diabetes mellitus wit hout complication, without long-term current use of insulin 04/23/2020 Multiple myeloma in remission 01/23/2020 Anemia complicating neoplastic disease 0 Current Oncology Plans [facility] ZOLEDRONIC ACID (ZOMETA) Q 6 MONTHS* Plan Start Date:11/22/2023 Plan Provider:Ryan Roblero MD Linked Problems Multiple myeloma in remissio n (HCC)Compression fracture of body of thoracic vertebra (HCC) Treatment Medications Saline Flush 0.9 %sodium chl oride (NS) 0.9 %zoledronic acid (ZOMETA) Past Plans ONCOLOGY INFUSION THERAPY Plan Name Start Date Discontinue Date Treatment Medications Discontinue Reason Plan Provider [facility] ZOLEDRONIC ACID (ZOMETA) Q 6 MONTHS 11/15/2022 11/11/2023 Saline Flush 0.9 %sodium chloride (NS) 0.9 %zoledronic acid (ZOMETA) Change in Level of Care Ryan Roblero MD Radiation Treatments * No radiation treatments are documented for this patient in [facility]. Treatments may have been administered in another system.
--- OUTSIDE RECORDS SUMMARY | 2025-04-02 10:37 | XMS_ITS ---
Author Organization [facility] Address [address] [place] [address] Phone Care Team Providers Care Farmworker Name Role Phone Tadeo Luther MD Primary Care Provider [phone] Active Problems Problem Noted Date Diagnosed Date Dementia without behavioral disturbance, psychotic disturbance, mood disturbance, or anxiety ([facility] V24, [facility] V28) 12/25/2024 Primary hypertension 12/25/2024 Hypothyroidism 12/25/2024 Hypercholesterolemia 12/25/2024 Compression fracture of body of thoracic vertebra ([facility] V24, [facility] V28) 04/23/2020 Type 2 diabetes mellitus wit hout complication, without long-term current use of insulin ([facility] V24, [facility] V28) 04/23/2020 Weight loss 04/23/2020 Anemia complicating neoplastic disease 0 Multiple myeloma in remission ([facility] V24, [facility] V28) 01/23/2020 Current Oncology Plans ZOLEDRONIC ACID ( ZOMETA ) EVERY 6 MONTHS* Plan Start Date:11/05/2024 Plan Provider:Ryan Bull MD Linked Problems [facility] ([facility] V24, [facility] V28) Treatment Medications No medications scheduled. Past Plans No past plan information found. Radiation Treatments * No radiation treatments are documented for this patient in [facility]. Treatments may have been administered in another system.
== END 2025-04-02 10:44 | disposition home or self-care (01) ==
LOC: HO.HSMS 09:47
PROVIDERS: PCP Internal Medicine; Visit Provider Psychiatry & Neurology Neurology
DX: G30.1 Alzheimer's disease with late onset (principal); F02.B0 Dementia in other diseases classified elsewhere, moderate, without behavioral disturbance, psychotic disturbance, mood disturbance, and anxiety; F32.89 Other specified depressive episodes
CPT/HCPCS: 99214; G2211

== ENCOUNTER → 2025-04-18 18:38 | Outpatient (BNV) | payer OTHER, SELFPAY | PROVIDERS: PCP Internal Medicine; Visit Provider Radiology Diagnostic Radiology | DX: G30.9 Alzheimer's disease, unspecified (principal) | CPT/HCPCS: 70551 ==

== ENCOUNTER 2025-04-18 18:44 | Outpatient (REF) | payer OTHER, SELFPAY ==
--- NOTE | ~2025-04-18 | MR_ITS ---
EXAMINATION: MR BRAIN WITHOUT CONTRAST CLINICAL INFORMATION: Alzheimer's disease, unspecified. Dementia x5 years, worsening. COMPARISON: 02/13/2024 MRI brain. TECHNIQUE: MRI of the brain was obtained using routine sequences without contrast. Examination was performed on a 1.5 Dania Siemens high-field unit. FINDINGS: There is no diffusion restriction. There is no intracranial hemorrhage, acute infarction, mass effect, or edema. Ventricles, sulci, and cisterns are diffusely prominent, in keeping with mildly age advanced cerebral and cerebellar atrophy. There is prominence of the temporal horns with bilateral mesial temporal lobe atrophy present. No shift of midline. No abnormal hemosiderin deposition is identified. There are moderate scattered punctate and mildly confluent foci of white matter T2 hyperintensity in the periventricular, subcortical, and hemispheric deep white matter. These foci are nonspecific but statistically most likely relate to small vessel ischemic changes. There has been no significant interval change in these findings since the prior exam. Midline structures appear normally formed. The pituitary gland appears normal. Posterior fossa structures appear normal. Cerebellar tonsils are appropriately located. Major flow voids are preserved within the skull base. The globes and orbital contents demonstrate no abnormalities. There are bilateral lens replacements. Mild circumferential mucosal thickening present in the right maxillary sinus, most prominent dependently. Remainder of the paranasal sinuses are clear bilaterally. Nasal septum is midline without spur. The mastoids and tympanic cavities are normally aerated. Extracranial soft tissues demonstrate no abnormalities. No suspicious bone marrow changes are evident. Right greater than left TM joint degenerative changes present. Atlantoaxial joint demonstrates mild to moderate degenerative arthritis. MR/MR head/brain wo con IMPRESSION: 1. No evidence of intracranial hemorrhage, acute infarction, mass effect, or edema. 2. Age advanced cerebral and cerebellar atrophic changes, stable. There is bilateral mesial temporal lobe atrophy present. 3. Stable moderate white matter changes of small vessel ischemia. 4. Mild right maxillary sinus mucosal disease. Electronically signed by: Jose Delarosa MD 04/19/2025 08:36 AM EDT
--- OUTSIDE RECORDS SUMMARY | 2025-04-18 18:47 | XMS_ITS ---
Author Organization [email or web address] Address [address] [place] [address] Care Team Providers Care Ve Teacher Name Role Phone Tadeo Luther MD Primary Care Provider [phone] Active Problems Problem Noted Date Diagnosed Date Weight loss 04/23/2020 Compression fracture of body of thoracic vertebr a 04/23/2020 Type 2 diabetes mellitus wit hout complication, without long-term current use of insulin 04/23/2020 Multiple myeloma in remission 01/23/2020 Anemia complicating neoplastic disease 0 Current Oncology Plans [facility] ZOLEDRONIC ACID (ZOMETA) Q 6 MONTHS* Plan Start Date:11/22/2023 Plan Provider:Ryan Roblero MD Linked Problems Multiple myeloma in remissio n (HCC)Compression fracture of body of thoracic vertebra (HCC) Treatment Medications Saline Flush 0.9 %sodium chl oride (NS) 0.9 %zoledronic acid (ZOMETA) Past Plans ONCOLOGY INFUSION THERAPY Plan Name Start Date Discontinue Date Treatment Medications Discontinue Reason Plan Provider [facility] ZOLEDRONIC ACID (ZOMETA) Q 6 MONTHS 11/15/2022 11/11/2023 Saline Flush 0.9 %sodium chloride (NS) 0.9 %zoledronic acid (ZOMETA) Change in Level of Care Ryan Roblero MD Radiation Treatments * No radiation treatments are documented [facility]. Treatments may have been administered in another system.
== END 2025-04-18 18:45 | disposition home or self-care (01) ==
LOC: HO.MRI 18:44
PROVIDERS: PCP Internal Medicine; Visit Provider Psychiatry & Neurology Neurology
DX: G30.9 Alzheimer's disease, unspecified (principal); F02.80 Dementia in other diseases classified elsewhere, unspecified severity, without behavioral disturbance, psychotic disturbance, mood disturbance, and anxiety
CPT/HCPCS: 70551

== ENCOUNTER 2025-07-08 13:11 | Outpatient (AMB) | payer OTHER, SELFPAY ==
--- OUTSIDE RECORDS SUMMARY | 2025-07-08 09:30 | XMS_ITS | Encounter Summary ---
Author Organization [facility] Address [address] [place] [address] Care Team Providers Care Plumber Apprentice Name Role Phone Ryan Bull MD Primary Care [phone] Reason for Visit * Reason Comments Hyperlipidemia Thyroid Follow-up Pt would like to ref ill rx Encounter Details Date Type Department Care Team ([facility] Contact Info) Description 07/08/2025 9:30 AM EDT Office Visit Adult Medicine [address] [phone] Tadeo Luther MD [address] [place] [address] Type 2 diabetes mellitus without complication, without long-term current use of insulin (CMS/HCC V24, CMS/HCC V28) (Primary Dx); Hypothyroidism, unspecified type; Hypercholesterolemia ; Encounter for long-term (current) use of medications; AD (Alzheimer's disease) (CMS/HCC V24, CMS/HCC V28); Primary hypertension; Hallucinations due to late onset dementia (CMS/HCC V24, CMS/HCC V28) Social History Tobacco Use Types Packs/Day Years Used Date Smoking Tobacco: Never Housing Instability Answer Date Recorde d Are you worried that in the next 2 months you may not have stable housing? No 12/25/2024 Food Access & Nutrition Answer Date Rec orded Do you have access to a vari ety of food including fruits and vegetables? Yes 12/25/2024 Health Literacy Answer Date Recorded How often do you need to hav e someone help you when you read instructions, pamphlets, or other written material from your doctor or pharmacy? Often 12/25/2024 Caregiver: How often do you need to have someone help you when you read instructions, pamphlets, or other written material from your doctor or pharmacy? Not on file 12/25/2024 Financial Risk Answer Date Recorded How hard is it for you to pa y for the very basics like food, housing, medical care, and air conditioning / heating? Not very hard 12/25/2024 Transportation Answer Date Recorded Has the lack of transportati on kept you from meetings, work, or from getting things needed for daily living? No Has the lack of transportati on kept you from medical appointments or from getting medications? No 12/25/2024 Social Isolation Answer Date Recorded How often do you feel lonely or isolated from those around you? Sometimes 12/25/2024 Food Risk Answer Date Recorded Within the past 12 months we worried whether our food would run out before we got money to buy more. Never true 12/25/2024 Within the past 12 months th e food we bought just didn't last and we didn't have money to get more. Never true 12/25/2024 Education Answer Date Recorded Do you think completing more education or training, like finishing a GED, going to college, or learning a trade, would be helpful for you? No 12/25/2024 Employment and Income Answer Date Recor ded During the last four weeks, have you been actively looking for work? No 12/25/2024 Living Situation Answer Date Recorded What is your living situation? Unrecognized valu e 12/25/2024 Comments No Sex and Gender Information Value Date Recorded Sex Assigned at Female 10/08/2024 8:07 AM EST Legal Sex Female 11:13 AM EST Gender Identity Female 10/08/2024 8:07 AM EST Sexual Orientation Straight 05/27/2025 10 :34 AM EDT documented as of this encounter Last Filed Vital Signs Vital Sign Reading Time Taken Comments Blood Pressure 132/59 07/08/2025 8:44 AM EDT Pulse 65 07/08/2025 8:44 AM EDT Temperature 36.6 C (97.8 F) 07/08/2025 8:44 AM EDT Respiratory Rate 15 07/08/2025 8:44 AM EDT Oxygen Saturation 98% 07/08/2025 8:44 AM EDT Inhaled Oxygen Concentration - - Weight 55.6 kg (122 lb 9.6 oz) 07/08/2025 8:44 A M EDT Height 142.2 cm (4' 8 ) 07/08/2025 8:44 AM EDT Body Mass Index 27.49 07/08/2025 8:44 AM EDT documented in this encounter Progress Notes * Tadeo Luther MD - 07/08/2025 9:30 AM EDT CHIEF COMPLAINT: Hyperlipidemia (Thyroid/) IDENTIFIER: Meera Capone is a 79 y.o. old female. HPI: Pt with diabetes Pt is on metformin 500 mg bid Pt was having diarrhea went to [facility] in summer and symptoms resolved Pt last a1c 6.2 12/2024 Pt last ldl 37 12/2024 lfts wnl 05/2025 Pt is on moderate intensity statin therapy Pt last microalb/cr ratio <30 01/2025 Pt is not on christa/arb Gfr 66 05/2025 Pt with low thyroid pt is on levothyroxine Last tsh 3.21 12/2024 Weight has stable down 6 pounds from 12/2024 not eating regularly Energy level stable Pt with htn pt currently on metoprolol 50mg and nifedipine 20 mg bp today is near goal @132/59 Pt denies light head/dizziness, shortness of breath , chest pain or lower ext edema Pt daughter having concerns for the patient's memory Pt has been referred to neuro([place]) pt was seen 10/2023 Pt issues are in regards to short term memory issues with recalling names of friends daughter is helping with meds and finances patient is not preparing her own meals Pt with hx of htn poorly controlled when she moved here from the [facility] in 2019 Mri showing extensive white matter changes Pt had not tolerated aricept due night terror and diarrhea in the past ,and was started on memantine 7mg to titrate up to 28mg Pt currently on 28 mg and seems tolerating well Pt was started on celexa 10 mg for mood Pt has f/u with neuro today Daughter notes some decline in memory lives with daughter patient few x monthly hearing things thatare not there babies crying, water dripping and paranoia of someone looking at he through the windows. Pt has been diagnosed with alzheimers pt is to have pet scan and update mmse as pt may be eligible for novel treatment with Kisunla has been improved and awaiting f/u with neuro todau ROS: GENERAL: Negative for malaise, significant weight loss and fever RESPIRATORY: No cough, wheezing or shortness of breath CARDIOVASCULAR: Negative for chest pain, leg swelling and palpitations NEURO: See HPI PAST MEDICAL HISTORY: Patient Active Problem List Diagnosis Date Noted Dementia without behavioral disturbance, psychotic disturbance, mood disturbance, or anxiety ([facility] V24, [facility] V28) 12/25/2024 Primary hypertension 12/25/2024 Hypothyroidism 12/25/2024 Hypercholesterolemia 12/25/2024 Compression fracture of body of thoracic vertebra ([facility] V24, [facility] V28) 04/23/2020 Type 2 diabetes mellitus without complication, without long-term current use of insulin ([facility] V24, [facility] V28) 04/23/2020 Weight loss 04/23/2020 Anemia complicating neoplastic disease 01/23/2020 Multiple myeloma in remission ([facility] V24, [facility] V28) 01/23/2020 SOCIAL HISTORY: Social History Tobacco Use Smoking status: Never Smokeless tobacco: Not on file Substance Use Topics Alcohol use: Not on file FAMILY HISTORY: No family status information on file. Family History[1] ACTIVE MEDICATIONS: Medications Taking[2] ALLERGIES: Patient has no known allergies. PHYSICAL EXAM: Blood pressure 132/59, pulse 65, temperature 36.6 ??C (97.8 ??F), temperature source Temporal, resp. rate 15, height 1.422 m (56 ), weight 55.6 kg (122 lb 9.6 oz). There is no height or weight on file to calculate BMI. Plan is deferred until next visit APPEARANCE: Alert and in no acute distress EYES: PERRLA, conjunctiva and sclera normal HEART: RRR with normal S1 and S2, no murmurs, no gallops, no JVD appreciated LUNG: clear to auscultation bilaterally EXTREMITIES: Extremities warm and well perfused without clubbing, cyanosis, or edema LABS: none IMPRESSION: 1. Type 2 diabetes mellitus without complication, without long-term current use of insulin ([facility], [facility] V28) 2. Hypothyroidism, unspecified type 3. Hypercholesterolemia 4. Encounter for long-term (current) use of medications 5. AD (Alzheimer's disease) ([facility] V24, [facility] V28) 6. Primary hypertension 7. Hallucinations due to late onset dementia ([facility] V24, [facility] V28) PLAN: Pt with diabetes well controlled last A1c 6.2. will update A1c today, pt will continue current diabetic regimen of metformin. Last microalb/cr ratio <30 , will update microalbumin today pt is not on christa/arb pt with high cholesterol on a statin will check lipid profile recent lfts wnl last ldl < 70 pt to continue current statin therapy Pt with htn acceptable today < 140/90 pt will continue current regimen of metoprlol and nifedipine pt recent gfr >60 Pt with hypothyroidism w/o si/sx of high or low thyroid last tsh at goal pt to continue current regimen of levothyroxine, will update tsh today Patient with alzheimer's. Pt has been improved for maddymanpreetneil pt to see neuro today memory continues to decline, pt now starting to have mild hallucinations and paranoia not overly bothersome will awaitrecs from neuro, d.w patients daughter if symptoms worsen we would consider seroquel in the interimpt to continue current regimen of memantine and celexa for mood Patient to f/u with me in 6 months Myself and my colleagues have maintained a long-term, longitudinal relationship with this patient, overseeing care of chronic conditions including diabetes ,high cholesterol, and hypothyroidism and htn. This care relationship has significantly influenced my decision making and treatment plans during today's encounter. Orders Placed This Encounter Procedures Lipid panel with reflex to direct LDL Standing Status: Future Expiration Date: 07/08/2026 Thyroid stimulating hormone with reflex to free t4 and free t3 Standing Status: Future Expiration Date: 07/08/2026 Hemoglobin A1c Standing Status: Future Expiration Date: 07/08/2026 Release to patient: Immediate [1] Microalbumin creatinine urine ratio Standing Status: Future Expiration Date: 07/08/2026 Release to patient: Immediate [1] ADDITIONAL ORDERS: None Tadeo Luther MD on 07/08/2025 at 7:34 AM EDT [1] No family history on file. [2] No outpatient medications have been marked as taking for the 07/08/25 encounter (Appointment) with Tadeo Luther MD. documented in this encounter Plan of Treatment Upcoming Encounters Date Type Department Care Team (Late st Contact Info) Description 11/25/2025 10:30 AM EST Office Visit [facility] Hematology Oncology [address] [place] [phone] Ryan Bull MD [address] [place] [address] 11/25/2025 11:00 AM EST Appointment [facility] Infusion Center [address] [place] [phone] 01/27/2026 9:00 AM EDT Office Visit [facility] [address] [place] [phone] Tadeo Luther MD [address] [place] [phone] Scheduled Orders Name Type Priority Associated Diagnoses Orde r Schedule Microalbumin creatinine urine ratio Lab Routine Type 2 diabetes mellitus without complication, without long-term current use of insulin ([facility] V24, [facility] V28) 1 Occurrences starting 07/08/2025 until 07/08/2026 documented as of this encounter Results * Hemoglobin A1c (07/08/2025 9:25 AM EDT) Hemoglobin A1C 6.2 <6.5 % LAB CHEMISTRY METHOD 07/08/2025 1:[address] [facility] Mean Bld Glu Estim. 131 mg/dL LAB CHEMISTRY METHOD 07/08/2025 1:[address] [facility] Blood Venous blood specimen / Unknown Venipuncture / Unknown 07/08/2025 9:25 AM EDT 07/08/2025 9:25 AM EDT us Tadeo Luther MD LAB BLOOD ORDERABLES Final Resu lt [facility] [address] [place] [address], [place] [phone] * Thyroid stimulating hormone with reflex to free t4 and free t3 (07/08/2025 9:25 AM EDT) TSH 2.82 0.40 - 4.00 mcIU/mL LAB CHEMISTRY METHOD 07/08/2025 2:[address] [facility] Blood Venous blood specimen / Unknown Venipuncture / Unknown 07/08/2025 9:25 AM EDT 07/08/2025 9:25 AM EDT us Tadeo Luther MD LAB BLOOD ORDERABLES Final Resu lt Performing Organization Address [facility]/ZIP Co de Phone Number [facility] [address] [place] [address], [place] [phone] * Lipid panel with reflex to direct LDL (07/08/2025 9:25 AM EDT) Cholesterol 97 0 - 200 mg/dL LAB CHEMISTRY METHOD 07/08/2025 2:[address] [facility] Triglycerides 90 0 - 150 mg/dL LAB CHEMISTRY METHOD 07/08/2025 2:[address] [facility] HDL 48 >=40 mg/dL LAB CHEMISTRY METHOD 07/08/2025 2:[address] [facility] LDL Calculated 31 0 - 100 mg/dL LAB CHEMISTRY METHOD 07/08/2025 2:[address] [facility] Comment:Estimated LDL Calcul ated using equation: Total cholesterol - HDL cholesterol - (Triglycerides/5) VLDL Cholesterol Earl 18 mg/dL LAB CHEMISTRY METHOD 07/08/2025 2:[address] [facility] Non HDL Chol. (LDL+VLDL) 49 <145 mg/dL LAB CHEMISTRY METHOD 07/08/2025 2:[address] [facility] Chol/HDL Ratio 2.0 0.0 - 4.4 LAB CHEMISTRY METHOD 07/08/2025 2:[address] [facility] Blood Venous blood specimen / Unknown Venipuncture / Unknown 07/08/2025 9:25 AM EDT 07/08/2025 9:25 AM EDT us Tadeo Luther MD LAB BLOOD ORDERABLES Final Resu lt [facility] [address] [place] [address], documented in this encounter Visit Diagnoses Diagnosis Type 2 diabetes mellitus without complication, without long-term current use of insulin ([facility] V24, [facility] V28)- Primary Hypothyroidism, unspecified type Hypercholesterolemia Pure hypercholesterolemia Encounter for long-term (current) use of medications Encounter for long-term (current) use of other medications AD (Alzheimer's disease) ([facility] V24, [facility] V28) Alzheimer's disease Primary hypertension Unspecified essential hypertension Hallucinations due to late onset dementia ([facility] V24, [facility] V28) documented in this encounter Care Teams Plumber Apprentice Relationship Specialty Start Date End Date Subramonia-Ryan Escobar MD [address] [place] [phone] PCP - General Oncology 05/14/25 documented as of this encounter
[2025-07-08 13:35] VITALS: BP 118/60; PULSE 68; O2SAT 98; BMI 23.8
--- NOTE | 2025-07-08 13:35 | MHC.OFFVIS ---
Vital Signs 07/08/25 13:35 Height 5 ft Weight 122 lb BMI 23.8 BP 118/60 Blood Pressure Location Lt brachial Position Sitting Pulse 68 Pulse Source Pulse Oximeter Pulse Oximetry (%) 98 Oxygen Delivery Method Room Air Intake Visit Reasons: Follow up Nursing Department Chairperson Required: No Accompanied by: Daughter Allergies No Known Allergies Allergy (Verified 07/08/25 13:39) Medication List - Last Reconciled 07/08/25 by ANATOLY Brock allopurinol 100 mg PO DAILY aspirin 81 mg PO DAILY citalopram 10 mg PO DAILY diclofenac sodium 1% 2 grams topical QID levothyroxine 50 mcg PO DAILY memantine 28 mg PO DAILY 90 days metformin 500 mg PO BID metoprolol succinate ER 50 mg PO BID nifedipine ER 30 mg PO DAILY simvastatin 20 mg PO DAILY [wheel chair As directed] zoledronic acid 4 mg IV Q4W HPI Comments Details: 79 y/o female comes for follow up of Alzheimer's dementia w/ positive PET scan. She is accompanied by her dtr Since the last visit, patient continues to have short term memory difficulties. She is still followed closely by [facility] for multiple myeloma treatment. 04/08/2025, Brain MRI w/o contrast 1. No evidence of intracranial hemorrhage, acute infarction, mass effect, or edema. 2. Age advanced cerebral and cerebellar atrophic changes, stable. There is bilateral mesial temporal lobe atrophy present. 3. Stable moderate white matter changes of small vessel ischemia. 4. Mild right maxillary sinus mucosal disease. 04/02/25 10:43 Vitamin B12 470 TSH 2.99 [facility] AD DETECT? 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 she is doing better comapred to her last visit (she had just come back from [facility]). She is on memantine XR 28 mg now and is tolerating. She did not start citalopram. According to her daughter she is more depressed at night.she does not want to use CPAP . Her HST was c/w mild sleep apnea. AHI was 14 and oxygen violetta was 78%, could not tolerate. She has been living with her daughter for 5 years a now and her daughter noticed that the patient was having frequent STM lapses. It is mostly short term recall, she has trouble with names of friends. She does her own breakfast but no cooking. Her daughter takes care of her meds and finances. 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 She has some personality changes gets emotional and irritable especially with her . In 2018 she was c/o headaches but has resolved. Her last fall was Oct 2023, no injuries. According to her daughter the HTN is well controlled. The MRI form 2021 shows extensive white matter disease. She is on Zometa for MM and followed by her Oncologist and PCP, Dr. Luther at [facility]. [facility] Medical History (Updated 07/15/25 @ 22:49 by ANATOLY Brock) Alzheimer's dementia Obstructive sleep apnea Hypersomnia Snoring Depression Mixed dementia Gout Hyperlipidemia Multiple myeloma Diabetes Hypothyroidism HTN (hypertension) Arthritis of knee Osteoporosis Hypersomnia Snoring Vaginal prolapse Surgical History H/O thyroidectomy H/O total hysterectomy Family History Father No problems noted. Mother No problems noted. Brother Diabetes Sister HTN (hypertension) Social History Household Members: Family Alcohol intake: never Patient Tobacco Use Status: Never used Tobacco Physical Exam Vital Signs: Last Vital Signs Pulse 68 07/08/25 13:35 BP 118/60 07/08/25 13:35 Pulse Ox 98 07/08/25 13:35 Oxygen Delivery Method Room Air 07/08/25 13:35 BMI result Body Mass Index 23.8 Const General: cooperative, healthy appearing and comfortable Nutritional Appearance: average body habitus Orientation/consciousness: patient oriented x3 Neuro General: patient oriented x3, moves all extremities and no focal motor deficits Gait exam (Neuro): Antalgic gait present Assessment & Plan Assessment & Plan (1) Alzheimer's dementia: Code(s): G30.9 - Alzheimer's disease, unspecified; F02.80 - Dementia in other diseases classified elsewhere, unspecified severity, without behavioral disturbance, psychotic disturbance, mood disturbance, and anxiety Category: Medical Qualifiers: Alzheimer's disease onset: late onset Dementia severity: moderate Dementia behavioral or psychological symptom: without behavioral, psychotic, or mood disturbance or anxiety Qualified Code(s): G30.1 - Alzheimer's disease with late onset; F02.B0 - Dementia in other diseases classified elsewhere, moderate, without behavioral disturbance, psychotic disturbance, mood disturbance, and anxiety (2) Depression: Code(s): F32.A - Depression, unspecified Category: Medical Qualifiers: Depression Type: other depression Qualified Code(s): F32.89 - Other specified depressive episodes Plan she will be a candidate for anti amyloid therapy - info on [place] given Reviewed interval work-up results, recent MMSE results, and med list: MMSE 22/30 Amyloid Brain PET scan scan: positive for moderate to frequent amyloid neurotic plaques. Vitamin B-12 level WNL. EPO status E3/E3- conveys average risk for AD and lower risk for developing Aria in setting of anti-amyloid targeted therapy use for the tx of AD. Brain MRI w/o shows stable chronic white matter changes. Patient is not on any anti-coagulant or antiplatelet agnet other than daily low dose ASA 81mg. Thus, concur that patient would be a good candidate to start anti-amyloid targeted therapy for management of her mild Alzeimher's disease, such as Kisunla. Kisunla IV every 4 weeks: 1st dose: 350mg IV 2nd dose 700mg IV 3rd dose 1050mg IV 4th dose and onward 1400mg Consider stopping Kisunla once follow-up Amyloid PET scan is negative Brain MRI w/o to monitor for signs of ARIA Before 2nd, 3rd, 4th, and 7th Kisunla infusion As needed for any clinical signs of ARIA. Kisunla hold queue and next barin MRI orders written today. Reviewed benefits and risks, including allerguc reaction, infusion reactions, and ARIA Reviewed potential signs of ARIA, including but not limited to new onset cognitive changes, headache, vision changes, focal neurological deficits. Continue Memantine ER 28mg po daily. Will follow-up upon review of above and patient to follow-up in clinic in 3-4 months or sooner prn. Orders: Orders Complete Blood Count Auto Diff Today C90.00 - Multiple myeloma not having achieved remission, D64.9 - Anemia, unspecified Comprehensive [place]. Panel Fast Today C90.00 - Multiple myeloma not having achieved remission, D64.9 - Anemia, unspecified Folate Today C90.00 - Multiple myeloma not having achieved remission, D64.9 - Anemia, unspecified Vitamin B1 Today C90.00 - Multiple myeloma not having achieved remission, D64.9 - Anemia, unspecified, E51.9 - Thiamine deficiency, unspecified IRON PROFILE Today C90.00 - Multiple myeloma not having achieved remission, D64.9 - Anemia, unspecified MR head/brain wo con Today F02.B0 - Dementia in other diseases classified elsewhere, moderate, without behavioral disturbance, psychotic disturbance, mood disturbance, and anxiety, G30.1 - Alzheimer's disease with late onset Homocysteine Today C90.00 - Multiple myeloma not having achieved remission, D64.9 - Anemia, unspecified Methylmalonic Acid Today C90.00 - Multiple myeloma not having achieved remission, D64.9 - Anemia, unspecified Ferritin Today C90.00 - Multiple myeloma not having achieved remission, D64.9 - Anemia, unspecified Medications: New donanemab-azbt (Kisunla) 350mg x's 1, then 700mg x's 1, then 1050mg x's 1, then 1400mg intravenously every 4 weeks; with brain MRI w/obefore 2nd, 3rd, 4th, and 7th doses. administered over approximately 30 minutes Coding Level of Care Code Est Pt Level 4 (41640) Diagnoses Moderate late onset Alzheimer's dementia without behavioral disturbance, psychotic disturbance, mood disturbance, or anxiety G30.1; F02.B0 Alzheimer's disease onset: late onset Dementia severity: moderate Dementia behavioral or psychological symptom: without behavioral, psychotic, or mood disturbance or anxiety Other depression F32.89 Depression Type: other depression
--- OUTSIDE RECORDS SUMMARY | 2025-07-08 15:37 | XMS_ITS ---
Author Organization [facility] Address [address] [place] [address] Care Team Providers Care Intervention Teacher Name Role Phone Tadeo Luther MD Primary Care Provider [phone] Active Problems Problem Noted Date Diagnosed Date Weight loss 04/23/2020 Compression fracture of body of thoracic vertebr a 04/23/2020 Type 2 diabetes mellitus wit hout complication, without long-term current use of insulin 04/23/2020 Multiple myeloma in remission 01/23/2020 Anemia complicating neoplastic disease 0 Current Oncology Plans [facility] ZOLEDRONIC ACID (ZOMETA) Q 6 MONTHS* Plan Start Date:11/22/2023 Plan Provider:Ryan Roblero MD Linked Problems Multiple myeloma in remissio n (HCC)Compression fracture of body of thoracic vertebra (HCC) Treatment Medications Saline Flush 0.9 %sodium chl oride (NS) 0.9 %zoledronic acid (ZOMETA) Past Plans ONCOLOGY INFUSION THERAPY Plan Name Start Date Discontinue Date Treatment Medications Discontinue Reason Plan Provider [facility] ZOLEDRONIC ACID (ZOMETA) Q 6 MONTHS 11/15/2022 11/11/2023 Saline Flush 0.9 %sodium chloride (NS) 0.9 %zoledronic acid (ZOMETA) Change in Level of Care Ryan Roblero MD Radiation Treatments * No radiation treatments are documented for this patient in [facility]. Treatments may have been administered in another system.
--- OUTSIDE RECORDS SUMMARY | 2025-07-08 15:37 | XMS_ITS | Clinical Summary ---
Author Organization [facility] Address [address] [place] [address] Care Team Providers Care Bevel Gear Generator Operator Name Role Phone Tadeo Luther MD Primary Care Provider [phone] Allergies No known active allergies Medications Medication [...] 67 04/02/2024 12:15 PM EDT Temperature 36.7 C (98 F) 04/02/2024 12:15 PM EDT Respiratory Rate 16 04/02/2024 12:1 [...] 75+ series) 2021 COVID-19 Vaccine ( season) 2025 08/16/2023, 03/11/2022, 06/15/2021, Additional history exists Influenza Vaccine (#1) 2025 3, 11/11/2022, 09/04/2021, Additional history exists DTap / Tdap / Td (2 - Td or Tdap) 06/14/2028 06/14/2018 Pneumococcal Vaccine Completed 07/16/2019, 06/14/20 18 Hepatitis B Vaccines Aged Out No long er eligible based on patient's age to complete this topic RSV Ped < 20 months Aged Out No longe r eligible based on patient's age to complete this topic Care Teams Bevel Gear Generator Operator Relationship Specialty Start Date End Date Tadeo Luther MD PCP - General Internal Medicine 06/09/21
--- OUTSIDE RECORDS SUMMARY | 2025-07-08 15:37 | XMS_ITS ---
Author Organization [facility] Address [address] [place] [address] Phone Care Team Providers Care Cloth Doubling Machine Operator Name Role Phone Ryan Bull MD Primary Care Provi jude Active Problems Problem Noted Date Diagnosed Date Dementia without behavioral disturbance, psychotic disturbance, mood disturbance, or anxiety ([facility] V24, [facility] V28) 12/25/2024 Primary hypertension 12/25/2024 Hypothyroidism 12/25/2024 Hypercholesterolemia 12/25/2024 Compression fracture of body of thoracic vertebra ([facility] V24, [facility] V28) 04/23/2020 Type 2 diabetes mellitus wit hout complication, without long-term current use of insulin ([facility] V24, [facility] V28) 04/23/2020 Weight loss 04/23/2020 Anemia complicating neoplastic disease 0 Multiple myeloma in remission ([facility] V24, [facility] V28) 01/23/2020 Current Treatment and Therapy Plans ZOLEDRONIC ACID ( ZOMETA ) EVERY 6 MONTHS* Plan Start Date:11/05/2024 Plan Provider:Ryan Bull MD Linked Problems Multiple myeloma in remissio n ([facility] V24, [facility] V28) Treatment Medications No medications scheduled. Past Treatment and Therapy Plans No past plan information found.
--- OUTSIDE RECORDS SUMMARY | 2025-07-08 15:37 | XMS_ITS | Clinical Summary ---
Author Organization [facility] Address [address] [place] [address] Phone Care Team Providers Care Wet Mix Operator Name Role Phone Ryan Bull MD Primary Care Provi jude Allergies No known active allergies Medications diclofenac (VOLTAREN) 1 % topical gel Place onto the skin. Active memantine 7--28 mg radha kumarE R 24hr dose pack Take by mouth. - Oral Active allopurinoL (ZYLOPRIM) 100 mg tablet Take 1 tablet (100 mg total) by mouth 1 (one) time each day. 90 tablet 2 5 Active levothyroxine (SYNTHROID, LEVOTHROID) 50 mcg tablet Take 1 tablet (50 mcg total) by mouth 1 (one) time each day before breakfast. 90 tablet 2 5 Active metFORMIN (GLUCOPHAGE) 500 mg tablet Take 1 tablet (500 mg total) by mouth 2 (two) times a day with meals. 180 tablet 2 5 Active metoprolol tartrate (LOPRESSOR) 50 mg tablet Take 1 tablet (50 mg total) by mouth 2 (two) times a day. 90 tablet 2 5 Active simvastatin (ZOCOR) 20 mg tablet Take 1 tablet (20 mg total) by mouth at bedtime. 90 tablet 2 5 Active aspirin 81 mg EC tablet Take 1 tablet (81 mg total) by mouth 1 (one) time each day. 90 tablet 2 5 Active freestyle (FreeStyle Lancets) 28 gauge lancets 1 each by Other route 1 (one) time each day. T2DM 100 each 2 5 Active Additional Information Patient not taking.Reason: Other (taking different brand), Reported on 07/08/2025 glucose blood test strip 1 each by Other route 1 (one) time each day. T2DM 100 each 2 5 Active citalopram (CeleXA) 10 mg tablet Active NIFEdipine (PROCARDIA) 20 mg capsule Take 1 capsule (20 mg total) by mouth every 8 (eight) hours. 90 capsule 3 5 Active NIFEdipine (PROCARDIA) 20 mg capsule Take 1 capsule (20 mg total) by mouth every 8 (eight) hours. 90 capsule 3 5 06/27/20 25 Discontin ued(Reord er) Active Problems Problem Noted Date Diagnosed Date Dementia without behavioral disturbance, psychotic disturbance, mood disturbance, or anxiety ([facility] V24, [facility] V28) 12/25/2024 Primary hypertension 12/25/2024 Hypothyroidism 12/25/2024 Hypercholesterolemia 12/25/2024 Compression fracture of body of thoracic vertebra ([facility] V24, [facility] V28) 04/23/2020 Type 2 diabetes mellitus wit hout complication, without long-term current use of insulin ([facility] V24, [facility] V28) 04/23/2020 Weight loss 04/23/2020 Anemia complicating neoplastic disease 0 Multiple myeloma in remission ([facility] V24, [facility] V28) 01/23/2020 Encounters Date Type Department Care Team Description 07/08/2025 9:30 AM EDT Office Visit Adult Medicine [address] [phone] Tadeo Luther MD Type 2 diabetes mellitus without complication, without long-term current use of insulin ([facility] V24, [facility] V28) (Primary Dx); Hypothyroidism, unspecified type; Hypercholesterolemia ; Encounter for long-term (current) use of medications; AD (Alzheimer's disease) ([facility] V24, [facility] V28); Primary hypertension; Hallucinations due to late onset dementia ([facility] V24, [facility] V28) 05/27/2025 10:30 AM EDT - 05/27/2025 11:59 PM EDT Hospital Encounter [facility] [address] [phone] Ryan Bull MD Multiple myeloma in remission [place] [place] [facility] [place] (Primary Dx) Discharge Disposition: Home or Self Care 05/27/2025 10:00 AM EDT Office Visit [facility] [address] [place] [phone] Ryan Bull MD Multiple myeloma in remission ([facility] [place], [facility] [place]) (Primary Dx); 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, psychotic disturbance, mood disturbance, or anxiety ([facility] [place], [facility] V[facility]) 05/13/2025 Telephone [facility] [address] [place] [phone] Kayla Hudson MA from Last 3 Months Immunizations Immunization Administration Dates Next Due Influenza trivalent, 0.5mL [...] Orientation Straight 05/27/2025 10 :34 AM EDT Obstetrics History Last Filed Vital Signs Vital [...] Mass Index 27.49 07/08/2025 8:44 AM EDT Plan of Treatment Upcoming Encounters Date Type Department Care Team (Late st Contact Info) Description 11/25/2025 10:30 AM EST Office Visit [facility] [address] [place] [phone] Ryan Bull MD [address] [place] [phone] 11/25/2025 11:00 AM EST Appointment [facility] [address] [facility] [address] [place] [phone] 01/27/2026 9:00 AM EDT Office Visit Adult Medicine [facility] [address] [place], [place] [phone] Tadeo Luther MD [address] [place] [phone] Health Maintenance Due Date Last Done Comments Diabetes: Annual Foot Exam 1955 Diabetes: Annual Retina Eye Exam 1955 Zoster Vaccines (1 of 2) 1965 RSV Immunization Adult Patients (1 - 1-dose 75+ series) 2021 Hepatitis C Screening 09/10/2022 Medicare Annual Wellness Visit 09/10/2022 Osteoporosis Screening (Bone Density Screening) 09/10/2022 Depression Screening 10/03/2024 COVID-19 Vaccine (8 - Pfizer risk season) 2025 10/23/2024, 08/16/2023, 11/03/2022, Additional history exists Influenza Vaccine (#1) 2025 , 08/16/2023, 11/11/2022, Additional history exists Diabetes: Blood Sugar Control Test (HGBA1C) 06/27/2025 07/08/2025, 12/25/2024 Falls Risk Assessment 11/05/2025 11/05/2024 Social Influencers of Health Screening 12/25/2025 12/25/2024 Diabetes: Annual Urine Albumin-Creatinine Ratio (uACR) 02/19/2026 02/19/2025 Diabetes: Annual GFR (Glomerular Filtration Rate) 05/14/2026 05/14/2025, 12/25/2024, 10/23/2024 Hypertension/CHF/CAD Annual BMP Blood Test 05/14/2026 05/14/2025, 12/25/2024, 10/23/2024 DTaP,Tdap,and Td Vaccines (2 - Td or Tdap) 06/14/2028 06/14/2018 Cholesterol Screening (Lipid Panel) 12/25/2029 07/08/2025, 12/25/2024 Pneumococcal Vaccine: 50+ Years Completed 07/16/2019, 06/14/2018 HIB Vaccines Aged Out No longer eligi [...] patient's age to complete this topic Meningococcal B Vaccine Aged Out No l onger eligible based on patient's age to complete this topic RSV Immunization Patients Under 20 months Aged Out No longer eligible based on patient's age to complete this topic Varicella Vaccines Aged Out No longer eligible based on patient's age to complete this topic Procedures Procedure Name Priority Date/Time Associated Diagnosis Comments LIPID PANEL WITH REFLEX TO DIRECT LDL Routine 07/08/2025 9:25 AM EDT Hypercholesterolemi a THYROID STIMULATING HORMONE WITH REFLEX TO FREE T4 AND FREE T3 Routine 07/08/2025 9:25 AM EDT Hypothyroidism, unspecified type HEMOGLOBIN A1C Routine 07/08/2025 9:25 AM EDT Type 2 diabetes mellitus without complication, without long-term current use of insulin ([facility] V24, [facility] V28) WV PROTEIN ELECTROPHORETIC FRACTIONATION & QUANTITATION SERUM Routine 05/14/2025 10:39 AM EDT Multiple myeloma in remission ([facility] V24, [facility] V28) PROTEIN, TOTAL Routine 05/14/2025 10:39 AM EDT Multiple myeloma in remission ([facility] V24, [facility] V28) CBC WITH AUTO DIFFERENTIAL Routine 05/14/2025 10:39 AM EDT Multiple myeloma in remission ([facility] V24, [facility] V28) KAPPA-LAMBDA QUANTITATIVE FREE LIGHT CHAINS Routine 05/14/2025 10:39 AM EDT Multiple myeloma in remission ([facility] V24, [facility] V28) CBC AND DIFFERENTIAL Routine 05/14/2025 10:39 AM EDT Multiple myeloma in remission ([facility] V24, [facility] V28) COMPREHENSIVE METABOLIC PANEL Routine 05/14/2025 10:39 AM EDT Multiple myeloma in remission ([facility] V24, [facility] V28) LACTATE DEHYDROGENASE Routine 05/14/2025 10:39 AM EDT Multiple myeloma in remission ([facility] V24, [facility] V28) PROTEIN ELECTROPHORESIS, SERUM Routine 05/14/2025 10:39 AM EDT Multiple myeloma in remission ([facility] V24, [facility] V28) MICROALBUMIN CREATININE URINE RATIO Routine 02/19/2025 10:13 AM EDT Type 2 diabetes mellitus without complication, without long-term current use of insulin ([facility]) from Last 3 Months or Most Recently Relevant to Health Maintenance Results * Thyroid stimulating hormone with reflex to free t4 and free t3 (07/08/2025 9:25 AM EDT) TSH 2.82 0.40 - 4.00 mcIU/mL LAB CHEMISTRY METHOD 07/08/2025 2:57 PM EDT [facility] Blood Venous blood specimen / Unknown Venipuncture / Unknown 07/08/2025 9:25 AM EDT 07/08/2025 9:25 AM EDT us Tadeo Luther MD LAB BLOOD ORDERABLES Final Resu lt [facility] [address] [place] [address], [place] [phone] * Lipid panel with reflex to direct LDL (07/08/2025 9:25 AM EDT) Cholesterol 97 0 - 200 mg/dL LAB CHEMISTRY METHOD 07/08/2025 2:11 PM EDT [facility] Triglycerides 90 0 - 150 mg/dL LAB CHEMISTRY METHOD 07/08/2025 2:11 PM EDT [facility] HDL 48 >=40 mg/dL LAB CHEMISTRY METHOD 07/08/2025 2:11 PM EDT [facility] LDL Calculated 31 0 - 100 mg/dL LAB CHEMISTRY METHOD 07/08/2025 2:11 PM EDT [facility] Comment:Estimated LDL Calcul ated using equation: Total cholesterol - HDL cholesterol - (Triglycerides/5) VLDL Cholesterol Earl 18 mg/dL LAB CHEMISTRY METHOD 07/08/2025 2:11 PM EDT [facility] Non HDL Chol. (LDL+VLDL) 49 <145 mg/dL LAB CHEMISTRY METHOD 07/08/2025 2:11 PM EDT [facility] Chol/HDL Ratio 2.0 0.0 - 4.4 LAB CHEMISTRY METHOD 07/08/2025 2:11 PM EDT [facility] Blood Venous blood specimen / Unknown Venipuncture / Unknown 07/08/2025 9:25 AM EDT 07/08/2025 9:25 AM EDT us Tadeo Luther MD LAB BLOOD ORDERABLES Final Resu lt [facility] [address] [place] [address], [place] [phone] * Hemoglobin A1c (07/08/2025 9:25 AM EDT) Pathologist [facility] Hemoglobin A1C 6.2 <6.5 % LAB CHEMISTRY METHOD 07/08/2025 1:29 PM EDT [facility] Mean Bld Glu Estim. 131 mg/dL LAB CHEMISTRY METHOD 07/08/2025 1:29 PM EDT [facility] Blood Venous blood specimen / Unknown Venipuncture / Unknown 07/08/2025 9:25 AM EDT 07/08/2025 9:25 AM EDT us Tadeo Luther MD LAB BLOOD ORDERABLES Final Resu lt [facility] [address] [place] [address], [place] [phone] * PATHOLOGIST REVIEW PROTEIN ELECTROPHORESIS (05/14/2025 10:39 AM EDT) Pathologist [facility] Pathologist Interpretation Radha Dc MD 05/17/2025 9:18 AM EDT [facility] Blood Venous blood specimen / Unknown Venipuncture / Unknown 05/14/2025 10:39 AM EDT 05/14/2025 11:24 AM EDT us Ryan Bull MD LAB BLOOD ORDERABLE S Final Result Performing Organization Address City/[facility]/ZIP Co de Phone Number [facility] [address] [place] [address], [place] [phone] * (ABNORMAL) Alverda-lambda free light chains, quantitative (05/14/2025 10:39 AM EDT) Pathologist [facility] Alverda Free Light Chain 19.26(H) 0.33 - 1.94 mg/dL 05/17/2025 11:30 AM EDT [facility] Lambda Free Light Chain 1.20 0.57 - 2.63 mg/dL 05/17/2025 11:30 AM EDT [facility] Alverda/Lambda FLC Ratio 16.05(H) 0.26 - 1.65 05/17/2025 11:30 AM EDT [facility] Comment: Test performed at [facility], [address], [place] [address] Adelia Daley MD, PhD - Plant Floor Automation Manager Blood Venous blood specimen / Unknown Venipuncture / Unknown 05/14/2025 10:39 AM EDT 05/14/2025 11:24 AM EDT Ryan Bull MD LAB BLOOD ORDERABLE S Final Result [facility] [address] [place] [place] [address] * (ABNORMAL) CBC auto differential (05/14/2025 10:39 AM EDT) WBC 5.2 4.8 - 10.8 K/mcL LAB HEMETOLOGY METHOD 05/14/2025 11:37 AM [facility] RBC 2.90(L) 3.80 - 4.80 M/[facility] LAB HEMETOLOGY METHOD 05/14/2025 11:37 AM [facility] Hemoglobin 9.8(L) 11.5 - 16.0 g/dL LAB HEMETOLOGY METHOD 05/14/2025 11:37 AM [facility] Hematocrit 30.1(L) 35.0 - 47.0 % LAB HEMETOLOGY METHOD 05/14/2025 11:37 AM EDT [facility] MCV 104.2(H) 79.0 - 98.0 FL LAB HEMETOLOGY METHOD 05/14[facility] MCH 33.9(H) 27.0 - 32.0 pcg LAB HEMETOLOGY METHOD 05/14/2025 11:37 AM [facility] MCHC 32.6 32.0 - 37.0 g/dL LAB HEMETOLOGY METHOD 05/14/2025 11:37 AM [facility] RDW 14.0 11.0 - 15.0 % LAB HEMETOLOGY METHOD 05/14/2025 11:37 AM [facility] Platelets 321 130 - 400 K/mcL LAB HEMETOLOGY METHOD 05/14/2025 11:37 AM [facility] MPV 8.3 7.0 - 11.0 FL LAB HEMETOLOGY METHOD 05/14/2025 11:37 AM [facility] NRBC 0.0 <1.0 % LAB HEMETOLOGY METHOD 05/14/2025 11:37 AM [facility] NRBC Absolute 0.00 <0.10 K/mcL LAB HEMETOLOGY METHOD 05/14/2025 11:37 AM [facility] Neutrophils Relative 56.3 % LAB HEMETOLOGY METHOD 05/14/2025 11:37 AM [facility] Lymphocytes Relative 33.0 % LAB HEMETOLOGY METHOD 05/14/2025 11:37 AM [facility] Monocytes Relative 9.3 % LAB HEMETOLOGY METHOD 05/14/2025 11:37 AM [facility] Eosinophils Relative 0.6 % LAB HEMETOLOGY METHOD 05/14/2025 11:37 AM [facility] Basophils Relative 0.6 % LAB HEMETOLOGY METHOD 05/14/2025 11:37 AM [facility] Immature Granulocytes Relative 0.2 % LAB HEMETOLOGY METHOD 05/14/2025 11:37 AM [facility] Neutrophils Absolute 2.90 1.50 - 7.00 K/mcL LAB HEMETOLOGY METHOD 05/14/2025 11:37 AM [facility] Lymphocytes Absolute 1.70 1.00 - 5.00 K/mcL LAB HEMETOLOGY METHOD 05/14/2025 11:37 AM EDT [facility] Monocytes Absolute 0.48 0.20 - 1.00 K/[facility] HEMETOLOGY METHOD 05/14/2025 11:37 AM EDT [facility] Eosinophils Absolute 0.03 0.00 - 0.50 K/[facility] HEMETOLOGY METHOD 05/14/2025 11:37 AM EDT [facility] Basophils Absolute 0.03 0.00 - 0.20 K/[facility] HEMETOLOGY METHOD 05/14/2025 11:37 AM EDT [facility] Immature Granulocytes Absolute 0.01 0.00 - 0.03 K/[facility] HEMETOLOGY METHOD 05/14/2025 11:37 AM T [facility] Blood Venous blood specimen / Unknown Venipuncture / Unknown 05/14/2025 10:39 AM EDT 05/14/2025 11:24 AM EDT us Subramjordan Bull MD LAB BLOOD ORDERABLE S Final Result [facility] [address] [place] [address], * (ABNORMAL) Protein electrophoresis, serum (05/14/2025 10:39 AM EDT) Total Protein 8.8(H) 6.0 - 8.0 g/dL LAB CHEMISTRY METHOD 05/17/2025 9:18 AM EDT [facility] Albumin, Serum 3.7 2.9 - 4.1 g/dL LAB CHEMISTRY METHOD 05/17/2025 9:18 AM EDT [facility] Alpha 1 Globulin (g/dL) 0.2 0.1 - 0.5 g/dL LAB CHEMISTRY METHOD 05/17/2025 9:18 AM EDT [facility] Alpha 2 Globulin (g/dL) 1.1 0.7 - 1.5 g/dL LAB CHEMISTRY METHOD 05/17/2025 9:18 AM EDT [facility] Beta (g/dL) 1.0 0.7 - 1.5 g/dL LAB CHEMISTRY METHOD 05/17/2025 9:18 AM EDT [facility] Gamma Globulin (g/dL) 2.8(H) 0.7 - 1.9 g/dL LAB CHEMISTRY METHOD 05/17/2025 9:18 AM EDT [facility] PARAPROTEIN 1.8 g/dL LAB CHEMISTRY METHOD 05/17/2025 9:18 AM EDT [facility] SPEP Interpretation Monoclonal gammopathy. Abnormal pattern with M-spike of gamma globulin mobility. Serum immunofixation previously performed on 10/23/2024 demonstrated IgG Alverda monoclonal protein. Hypergammaglobin emia. LAB CHEMISTRY METHOD 05/17/2025 9:18 AM EDT [facility] Blood Venous blood specimen / Unknown Venipuncture / Unknown 05/14/2025 10:39 AM EDT 05/14/2025 11:24 AM EDT us Ryan Bull MD LAB BLOOD ORDERABLE S Final Result Performing Organization Address [facility]/State/ZIP Co de Phone Number [facility] [address] [place] [address], * (ABNORMAL) Protein, total (05/14/2025 10:39 AM EDT) Total Protein 8.8(H) 6.0 - 8.0 g/dL LAB CHEMISTRY METHOD 05/14/2025 2:18 PM EDT [facility] Blood Venous blood specimen / Unknown Venipuncture / Unknown 05/14/2025 10:39 AM EDT 05/14/2025 11:24 AM EDT us Ryan Bull MD LAB BLOOD ORDERABLE S Final Result Performing Organization Address City/[facility]/ZIP Co de Phone Number [facility] [address] [place] [address], * Lactate dehydrogenase (05/14/2025 10:39 AM EDT) LDH 155 120 - 246 unit/L LAB CHEMISTRY METHOD 05/14/2025 2:34 PM EDT [facility] Blood Venous blood specimen / Unknown Venipuncture / Unknown 05/14/2025 10:39 AM EDT 05/14/2025 11:24 AM EDT Ryan Bull MD LAB BLOOD ORDERABLE S Final Result Performing Organization Address [facility]/ZIP Co de Phone Number [facility] [address] [place] [address], * (ABNORMAL) Comprehensive metabolic panel (05/14/2025 10:39 AM EDT) Pathologist [facility] Sodium 137 133 - 145 mmol/L LAB CHEMISTRY METHOD 05/14/2025 2:34 PM T [facility] Potassium 4.0 3.5 - 5.5 mmol/L LAB CHEMISTRY METHOD 05/14/2025 2:34 PM [facility] Chloride 106 96 - 110 mmol/L LAB CHEMISTRY METHOD 05/14/2025 2:34 PM T [facility] CO2 25 21 - 32 mmol/L LAB CHEMISTRY METHOD 05/14/2025 2:34 PM T [facility] Anion Gap 6 3 - 11 LAB CHEMISTRY METHOD 05/14/2025 2:34 PM [facility] Glucose 114(H) 70 - 100 mg/dL LAB CHEMISTRY METHOD 05/14/2025 2:34 PM [facility] BUN 21 5 - 25 mg/dL LAB CHEMISTRY METHOD 05/14/2025 2:34 PM EDT [facility] Creatinine 0.90 0.50 - 1.10 mg/dL LAB CHEMISTRY METHOD 05/14/2025 2:34 PM [facility] eGFR 66 >=60 mL/min/1. 73m2 LAB CHEMISTRY METHOD 05/14/2025 2:34 PM [facility] Comment:Calculation based on the Chronic Kidney Disease Epidemiology Collaboration (CKD-EPI) equation refit without adjustment for race. BUN/Creatinine Ratio 23.3 LAB CHEMISTRY METHOD 05/14/2025 2:34 PM [facility] Calcium 8.6 8.5 - 10.5 mg/dL LAB CHEMISTRY METHOD 05/14/2025 2:34 PM [facility] AST (SGOT) 24 10 - 42 unit/L LAB CHEMISTRY METHOD 05/14/2025 2:34 PM [facility] ALT (SGPT) 13 10 - 60 unit/L LAB CHEMISTRY METHOD 05/14/2025 2:34 PM [facility] Alkaline Phosphatase 45 42 - 121 unit/L LAB CHEMISTRY METHOD 05/14/2025 2:34 PM [facility] Total Protein 8.6(H) 6.0 - 8.0 g/dL LAB CHEMISTRY METHOD 05/14/2025 2:34 PM [facility] Albumin 3.4 3.2 - 5.0 g/dL LAB CHEMISTRY METHOD 05/14/2025 2:34 PM [facility] Total Bilirubin 0.3 0.0 - 1.4 mg/dL LAB CHEMISTRY METHOD 05/14/2025 2:34 PM [facility] Blood Venous blood specimen / Unknown Venipuncture / Unknown 05/14/2025 10:39 AM EDT 05/14/2025 11:24 AM EDT us Ryan Bull MD LAB BLOOD ORDERABLE S Final Result [facility] [address] [place] [address], [place] [phone] * Microalbumin creatinine urine ratio (02/19/2025 10:13 AM EDT) Creatinine, Urine 99.0 mg/dL LAB CHEMISTRY METHOD 02/19/2025 1:07 PM EDT [facility] Microalb, Ur 9.0 0.0 - 29.0 mg/L LAB CHEMISTRY METHOD 02/19/2025 1:07 PM EDT [facility] Microalb/Creat Ratio 9 <30 mg/g creat LAB CHEMISTRY METHOD 02/19/2025 1:07 PM EDT [facility] Urine Urine specimen obtained by clean catch procedure / Unknown Non-blood Collection / Unknown 02/19/2025 10:13 AM EDT 02/19/2025 10:13 AM EDT us Tadeo Luther MD LAB URINE ORDERABLES Final Resu lt Performing Organization Address [facility]/ZIP Co de Phone Number [facility] [address] [place] [address], [place] [phone] from Last 3 Months or Most Recently Relevant to Health [place] [address] [facility] MEDICARE Member Subscriber Plan / Payer (Ef fective 2025-Present) Name:Meera Capone Relation to Subscriber:Self Name:Meera Capone Payer ID:[id number] Group ID:[id number] Type:Not on file Address: [place] [address] [phone] Care Teams Wet Mix Operator Relationship Specialty Start Date End Date Ryan Bull MD [address] [place] [address] PCP - General Oncology 05/14/25
== END 2025-07-08 14:08 | disposition home or self-care (01) ==
LOC: HO.HSMS 13:11
PROVIDERS: PCP Internal Medicine; Visit Provider Nurse Practitioner Family
DX: G30.1 Alzheimer's disease with late onset (principal); F02.B0 Dementia in other diseases classified elsewhere, moderate, without behavioral disturbance, psychotic disturbance, mood disturbance, and anxiety; F32.89 Other specified depressive episodes
CPT/HCPCS: 99214

== ENCOUNTER → 2025-07-08 13:11 | Outpatient (BNVA) | payer OTHER, SELFPAY | PROVIDERS: PCP Internal Medicine; Visit Provider Nurse Practitioner Family | DX: F32.89 Other specified depressive episodes (principal); G30.9 Alzheimer's disease, unspecified; F02.B0 Dementia in other diseases classified elsewhere, moderate, without behavioral disturbance, psychotic disturbance, mood disturbance, and anxiety | CPT/HCPCS: 99212 ==